=== PATIENT | male | born 1980 | race Caucasian/White ===

== ENCOUNTER 2019-10-10 15:49 | Emergency (ER) | payer OTHER, SELFPAY ==
--- NOTE | ~2019-10-10 | CT_ITS ---
EXAMINATION: CT soft tissue neck wo con EXAM DATE: 10/10/2019 16:45 INDICATION: Left-sided neck tenderness, anterior cervical adenopathy/mass. TECHNIQUE: Spiral CT of the neck was performed without contrast. Axial, coronal and sagittal images were reviewed. The dose-length product (DLP) for this examination was 623.90 mGy-cm. The exposure was tailored according to patient size (auto mA exposure control), and iterative reconstruction (ASIR ) was used as additional dose reduction technique. There is no prior study for comparison. FINDINGS: The thyroid gland is unremarkable. The submandibular and parotid glands are symmetric. There is no cervical lymphadenopathy. There are no masses identified. The superior mediastinum is unremarkable. The airway is unremarkable. Parapharyngeal and pre-glottic fat planes are preserve d. Limited evaluation of cervical vessels on this noncontrast study. The orbits are unremarkable. Mild to moderate right maxillary, mild left maxillary sinus mucoperiosteal thickening. Mastoid air cells are well aerated. Lung apices are clear. Cervical fusion C6-7. IMPRESSION: Unremarkable CT neck examination. Reviewed, dictated and finalized at location A. STRETCHER HAND
[2019-10-10 16:09] VITALS: BP 138/85; PULSE 84; RESP 19; TEMP 36.7; O2SAT 100
--- NOTE | 2019-10-10 16:30 | ED.GENADULT ---
HPI - General Adult General Chief complaint: Unspecified Stated complaint: THROAT PAIN Time Seen by Provider: 10/10/19 16:16 Source: patient Mode of arrival: ambulatory Limitations: no limitations History of Present Illness HPI narrative: This is a 39 year old male that presents to the ER for lump in his neck for 5 years. Reports a lump on the left side of his neck that has been present for a long time. Reports it is painful when he coughs. Reports he feels like it causes him to lose his airway when he coughs. Reports a hoarse voice and cough. He has not been seen for this yet. Denies fever, sore throat, rhinorrhea, or congestion, chest pain or current shortness of breath. Related Data Home Medications Medication Instructions Recorded Confirmed No Home Medications 10/10/19 10/10/19 Allergies Allergy/AdvReac Type Severity Reaction Status Date / Time clarithromycin Allergy Unknown Hives Verified 10/10/19 16:13 codeine Allergy Unknown Hives Verified 10/10/19 16:13 morphine Allergy Unknown Unknown Verified 10/10/19 16:13 propoxyphene Allergy Unknown Unknown Verified 10/10/19 16:13 SHELLFISH Allergy Unknown Anaphylaxis Uncoded 10/10/19 16:13 Review of Systems Review of Systems: Narrative: CONSTITUTIONAL: Denies fever ENT: Reports otalgia. Denies rhinorrhea, congestion, sore throat CARDIOVASCULAR: Denies chest pain RESPIRATORY: Reports cough. Denies dyspnea All systems reviewed & are unremarkable except as noted in HPI and below PMFSH Past Medical History Medical History (Updated 10/10/19 @ 17:57 by Abeba Freedman PA-C) History of hypertension Surgical History Surgical History (Updated 10/10/19 @ 16:42 by Abeba Freedman PA-C) History of appendectomy History of cholecystectomy Social History Social History (Updated 10/10/19 @ 16:42 by Abeba Freedman PA-C) Smoking status: Current every day smoker Gender identity (if verbalized by the patient): Male Exam Narrative: Exam Narrative: GENERAL: Well-appearing, well-nourished, and in no acute distress. HEAD: Normocephalic, atraumatic. EYES: EOMI. ENT: Nares clear, no rhinorrhea or epistaxis. Mucous membranes moist. Oropharynx without tonsillar hypertrophy exudate or other lesions. Bilateral TMs pearly grimes non-bulging NECK: Supple. Left sided tender anterior cervical adenopathy. No abnormal masses CHEST: Clear to auscultation. No respiratory distress. No wheezes rales or rhonchi HEART: Regular rate and rhythm. No murmur heard. Normal peripheral pulses. EXTREMITIES: Normal range of motion. No edema. SKIN: Warm, dry, no rash. NEURO: No focal deficits. Alert and oriented x3. PSYCH: Normal mood and affect Course Vital Signs Vital signs: Vital Signs Temperature 98.0 F 10/10/19 16:09 Pulse Rate 84 10/10/19 16:09 Respiratory Rate 10/10/19 16:09 Blood Pressure 138/85 10/10/19 16:09 Pulse Oximetry 100 10/10/19 16:09 Temperature 98.0 F 10/10/19 16:09 Pulse Rate 84 10/10/19 16:09 Respiratory Rate 10/10/19 16:09 Blood Pressure 138/85 10/10/19 16:09 Pulse Oximetry 100 10/10/19 16:09 Medical Decision Making [facility] Narrative Medical decision making narrative: Patient presents the emergency department for chronic hoarseness and feeling of mass in his neck for years. He is afebrile and nontoxic-appearing. Airway is patent on exam. CBC with mild normocytic anemia, otherwise no acute changes. Metabolic panel is without acute changes. Inflammatory markers are not elevated. CT soft tissue neck is unremarkable. Patient was updated on case findings. He is to follow-up with his primary care doctor. He was given warnings to return to the ER Vital Signs Vital Signs: Vital Signs Temperature 98.0 F 10/10/19 16:09 Pulse Rate 84 10/10/19 16:09 Respiratory Rate 19 10/10/19 16:09 Blood Pressure 138/85 10/10/19 16:09 Pulse Oximetry 100 10/10/19 16:09 Temperature 98.0 F 10/10/19 16:09 Pulse Rate 84
[2019-10-10 16:38] LABS: Basophils Percent Auto 0.1 % (0.2-1.2); Eosinophils Absolute Auto 0.4 K/mm3 (0-0.3); Eosinophils Percent Auto 4.2 % (0-4.4); Hematocrit 38.3 % (42.0-52.0); Hemoglobin 12.7 g/dL (14.0-18.0); Immature Granulocyte Absolute 0.04 K/mm3 (0.00-0.031); Immature Granulocyte Percent A 0.4 % (0-0.5); Lymphocytes Absolute Auto 2.23 K/mm3 (0.9-3.2); Lymphocytes Percent Auto 21.7 % (18.3-44.2); Mean Corpuscular HGB Conc 33.2 g/dl (32-36); Mean Corpuscular Hemoglobin 28.5 pg (26-34); Mean Corpuscular Volume 85.9 fl (80-100); Mean Platelet Volume 10.1 fl (7.4-10.4); Monocytes Absolute Auto 0.8 K/mm3 (0.1-0.6); Monocytes Percent Auto 7.6 % (2.6-8.5); Neutrophils Absolute Auto 6.8 K/mm3 (1.3-6.7); Platelet Count Result 299 k/mm3 (150-375); Red Blood Count 4.46 M/mm3 (4.6-6.20); Red Cell Distribution Width 14.4 % (11.5-14.5); White Blood Count 10.3 K/mm3 (4.5-10.0)
[2019-10-10 16:51] LABS: Blood Urea Nitrogen 11 mg/dL (9-20); CRP < 0.5 mg/dL (<1.0); Carbon Dioxide 21 mmol/L (22-30); Chloride 105 mmol/L (98-107); Estimated Glomerular Filt Rate > 60; Glucose 114 mg/dL (75-110); Potassium 3.9 mmol/L (3.4-5.0); Sodium 140 mmol/L (137-145)
[2019-10-10 17:07] LABS: Erythrocyte Sedimentation Rate 15 mm/hr (0-20)
== END 2019-10-10 18:09 | disposition home or self-care (01) ==
PROVIDERS: Physician Assistant; Emergency Provider Emergency Medicine; PCP Family Medicine Adolescent Medicine
DX: M54.2 Cervicalgia (principal); I10 Essential (primary) hypertension; F17.200 Nicotine dependence, unspecified, uncomplicated
CPT/HCPCS: 36415; 70490; 80048; 85025; 85652; 86140; 99284

== ENCOUNTER 2020-06-07 19:27 | Emergency (ER) | payer OTHER, SELFPAY ==
[2020-06-07 19:34] VITALS: BP 132/89; PULSE 89; RESP 16; TEMP 37; O2SAT 99
--- NOTE | 2020-06-07 19:40 | ED.GENADULT ---
HPI - General Adult General Chief complaint: Ear Stated complaint: Right Ear Pain Time Seen by Provider: 06/07/20 19:40 Source: patient Mode of arrival: ambulatory Limitations: no limitations History of Present Illness HPI narrative: 39-year-old male patient presents to the [facility] with complaints of right ear pain for the past 2 to 3 days. Patient states he has had some ringing to the right ear. Patient states he is also has some runny nose and stuffy nose and a slight cough that is nonproductive. Denies any fevers in the last 2 days but states he thinks he might have been running a fever about 3 days ago and states it was probably low-grade 99-100. Patient denies any chest pain or shortness of breath. Denies any abdominal pain, nausea, vomiting or diarrhea. Patient states he has been taking Benadryl and Tylenol for his symptoms. Patient states he was Covid tested last week it was negative. Related Data Allergies Allergy/AdvReac Type Severity Reaction Status Date / Time clarithromycin Allergy Unknown Hives Verified 10/10/19 16:13 codeine Allergy Unknown Hives Verified 10/10/19 16:13 morphine Allergy Unknown Unknown Verified 10/10/19 16:13 propoxyphene Allergy Unknown Unknown Verified 10/10/19 16:13 SHELLFISH Allergy Unknown Anaphylaxis Uncoded 10/10/19 16:13 Review of Systems Review of Systems: Narrative: CONSTITUTIONAL: Positive low-grade fever, denies chills, or sweats. EYES: Denies visual changes, redness, or discharge. ENT: Positive rhinorrhea, congestion, positive sore throat, positive right otalgia. CARDIOVASCULAR: Denies chest pain, palpitations, or edema. RESPIRATORY: Denies cough or dyspnea. GASTROINTESTINAL: Denies abdominal pain, nausea, vomiting, or diarrhea. GENITOURINARY: Denies dysuria or hematuria. SKIN: Denies rash or itching. MUSCULOSKELETAL: Denies back pain, joint pain, or myalgia. NEUROLOGIC: Denies headache, numbness, or weakness. PSYCHIATRIC: Denies anxiety or depression. [facility] Past Medical History Medical History (Updated 06/07/20 @ 19:46 by SHARI Cooper) Fractures Right patella History of hypertension Musculoskeletal disorder Right carpal tunnel release Surgical History Surgical History (Updated 06/07/20 @ 19:41 by SHARI Cooper) H/O Spinal surgery C6 and C7 fusion History of appendectomy History of cholecystectomy History of orthopedic surgery Left shoulder Social History Social History Smoking status: Current every day smoker Gender identity (if verbalized by the patient): Male Comments At the time of my signature I agree with nursing past medical history, surgical, social, and family history. There is no relevant family history pertinent to the presenting complaint. Exam Narrative: Exam Narrative: GENERAL: Well-appearing, well-nourished, and in no acute distress. HEAD: Normocephalic, atraumatic. EYES: PERRLA and EOMI. ENT: Nares clear, no rhinorrhea or epistaxis. Mucous membranes moist. Posterior pharynx no erythema, tonsil management, exudates or lesions present. Patient's right ear does have erythema and fluid behind the ear. It does appear to have some injection noted. Left ear is clear no erythema or foreign bodies to the canal. NECK: Supple. No lymphadenopathy CHEST: Clear to auscultation. No respiratory distress. HEART: Regular rate and rhythm. No murmur heard. Normal peripheral pulses. ABDOMEN: Soft, nontender, nondistended, normal active bowel sounds. EXTREMITIES: Normal range of motion. No edema. SKIN: Warm, dry, no rash. NEURO: No focal deficits. Alert and oriented x3. Course Vital Signs Vital signs: Vital Signs Temperature 37.0 C 06/07/20 19:34 Pulse Rate 89 06/07/20 19:34 Respiratory Rate 16 06/07/20 19:34 Blood Pressure 132/89 06/07/20 19:34 Pulse Oximetry 99 06/07/20 19:34 Temperature 37.0 C 06/07/20 19:34 Pulse Rate 89 06/07/20 19:34 Respiratory
== END 2020-06-07 19:52 | disposition home or self-care (01) ==
PROVIDERS: Emergency Provider Nurse Practitioner Family
DX: H66.91 Otitis media, unspecified, right ear (principal); I10 Essential (primary) hypertension
CPT/HCPCS: 99213; G0463

== ENCOUNTER 2022-10-21 14:22 | Outpatient (CLI) | payer OTHER, SELFPAY ==
--- NOTE | ~2022-10-21 | XR_ITS ---
EXAMINATION: XR chest 2V DATE: 10/21/2022 14:59 INDICATION: Cough and shortness of breath TECHNIQUE: PA and lateral views of the chest are obtained. COMPARISON: 03/05/2018 FINDINGS: The lungs are free of acute opacities. No pleural effusion or pneumothorax. The cardiomedia stinal silhouette is normal. Changes of anterior and posterior fusion are noted in the lower cervical spine. Surgical clips in the right upper quadrant are likely from prior cholecystectomy. IMPRESSION: 1. No acute cardiopulmonary abnormality. Reviewed, dictated and finalized at location F. R CONE GRADER
== END 2022-10-21 14:23 | disposition home or self-care (01) ==
PROVIDERS: PCP Internal Medicine; Visit Provider Internal Medicine
DX: R06.09 Other forms of dyspnea (principal); G47.30 Sleep apnea, unspecified
CPT/HCPCS: 71046

== ENCOUNTER 2022-10-23 18:06 | Emergency (ER) | payer OTHER, SELFPAY ==
--- NOTE | 2022-10-23 18:11 | ECG_ITS ---
Measurements Intervals [place] Rate: 80 P: 21 VA: 175 QRS: 5 QRSD: 109 T: 37 QT: 366 QTc: 423 Interpretive Statements SINUS RHYTHM MINIMAL Q WAVES- HIGH LATERAL LEADS BASELINE WANDER- V1-V4 BORDERLINE ECG NO PREVIOUS ECG AVAILABLE FOR COMPARISON Electronically Signed On 10-24-2022 6:45:27 [address] [employer] by David Ford D.O.
[2022-10-23 18:18] VITALS: BP 136/83; PULSE 85; RESP 17; TEMP 36.9; O2SAT 96
--- NOTE | 2022-10-23 18:25 | PC.NURSE ---
pt. states I feel fine and there are a lot of people here, we are going to follow up with my pcp. Pt. advised to seek medical tx. if ss worsen. pt. ambulated out of ed w/ steady gait.
== END 2022-10-23 19:04 | disposition left against medical advice (07) ==
PROVIDERS: Emergency Provider Emergency Medicine; PCP Internal Medicine
DX: Z53.21 Procedure and treatment not carried out due to patient leaving prior to being seen by health care provider (principal)
CPT/HCPCS: 93005; 99199

== ENCOUNTER 2022-12-03 08:55 | Emergency (ER) | payer OTHER, SELFPAY ==
--- NOTE | ~2022-12-03 | CT_ITS ---
EXAMINATION: CT abdomen pelvis wo con DATE: 12/03/2022 11:12 INDICATION: Chest pain. Back pain radiating to the ribs. TECHNIQUE: Computed tomography (CT) of the abdomen and pelvis was performed without intravenous contr ast. Automated exposure control and iterative reconstruction technique were employed. The dose-length product was 1394.99 mGy-cm. COMPARISON: None. FINDINGS: The visualized portions of the lung bases demonstrate mild atelectasis. No pleural effusion . The heart size is normal. No pericardial effusion. The liver and spleen are normal. There are goss es of cholecystectomy. The pancreas, adrenal glands, and kidneys are normal. There is no urolithiasis . There are bilateral inguinal hernias containing fat. The appendix is normal. There are no pathologi spencer enlarged lymph nodes. There is no free intraperitoneal fluid. There are subcutaneous injection sites in anterior abdominal wall. There is mild thoracic spondylosis. IMPRESSION: 1. No urolithiasis. Reviewed, dictated and finalized at location A. IMPRESSION: 1. No urolithiasis.
--- NOTE | ~2022-12-03 | XR_ITS ---
EXAMINATION: XR chest 2V DATE: 12/03/2022 11:15 INDICATION: Chest pain. Cough. TECHNIQUE: Frontal and lateral views of the chest were obtained. COMPARISON: Chest 2 views 10/21/2022 FINDINGS: The chest demonstrates clear lungs without pneumonia, pleural effusion, or pneumothorax. Th e heart size is normal. Surgical clips in the right upper quadrant are likely from cholecystectomy. T here are changes of anterior and posterior fusion procedures in cervical spine. IMPRESSION: 1. No acute cardiopulmonary disease. Reviewed, dictated and finalized at location A.
--- NOTE | ~2022-12-03 | NM_ITS ---
EXAMINATION: NM pulmonary perfusion DATE: 12/03/2022 12:48 INDICATION: Chest pain. Cough. TECHNIQUE: 5.5 mCi Tc-99m MAA was administered intravenously for perfusion images. Scintigraphic stacy ges of the chest were obtained. COMPARISON: Chest 2 views 12/03/2022 FINDINGS: Perfusion images show no defects. IMPRESSION: 1. Normal perfusion. Pulmonary embolism absent. Reviewed, dictated and finalized at location A.
[2022-12-03 09:00] VITALS: BP 140/98; PULSE 87; RESP 15; TEMP 36.7; O2SAT 95
[2022-12-03 09:06] VITALS: RESP 15
--- NOTE | 2022-12-03 09:53 | ED.GENADULT ---
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 Reports the pain is a constant dull ache with intermittent sharpness, more tender to palpation overlying the right flank and lower right posterior ribs that wraps around to his side. Pain worse with coughing, deep inhalation and movement. Patient reports he has had a constant cough since he had COVID back in June 2022, he is currently being evaluated by casework supervisor and was diagnosed with JUSTINE and is awaiting a pulmonary function test. He uses an albuterol inhaler regularly with improvement in his cough, but states it has become more productive the past couple of days. He does endorse shortness of breath but states this is not different from his baseline. He denies fevers, body aches or chills, chest pain, focal numbness or weakness, dysuria or hematuria, history of nephrolithiasis, hemoptysis, history of PE, abdominal pain, nausea, vomiting, diarrhea. <NANCY Lambert Last Filed: 12/03/22 19:11> Related Data Allergies/adverse reactions: Allergies Allergy/AdvReac Type Severity Reaction Status Date / Time shellfish derived Allergy Severe Anaphylaxis Verified 12/03/22 13:12 clarithromycin Allergy Unknown Hives Verified 12/03/22 09:10 codeine Allergy Unknown Hives Verified 12/03/22 09:10 morphine Allergy Unknown Unknown Verified 12/03/22 09:10 propoxyphene Allergy Unknown Unknown Verified 12/03/22 09:10 <NANCY Lambert Last Filed: 12/03/22 19:11> Review of Systems Review of Systems: CONSTITUTIONAL: Denies fever, chills EYES: Denies visual changes, redness, or discharge. ENT: Denies rhinorrhea, congestion, sore throat, or otalgia. CARDIOVASCULAR: Denies chest pain, palpitations, or edema. RESPIRATORY: See HPI GASTROINTESTINAL: Denies abdominal pain, nausea, vomiting, or diarrhea. GENITOURINARY: Denies dysuria or hematuria. SKIN: Denies rash or itching. MUSCULOSKELETAL: See HPI NEUROLOGIC: Denies headache, numbness, dizziness, or weakness. PSYCHIATRIC: Denies anxiety or depression. <Zara Plascencia PA-C - Last Filed: 12/03/22 19:11> [facility] Past Medical History Medical History: Medical History Fractures Right patella History of hypertension Musculoskeletal disorder Right carpal tunnel release <Zara Plascencia PA-C - Last Filed: 12/03/22 19:11> Surgical History Surgical History: Surgical History H/O Spinal surgery C6 and C7 fusion History of appendectomy History of cholecystectomy History of orthopedic surgery Left shoulder <Zara Plascencia PA-C - Last Filed: 12/03/22 19:11> Social History Social History: Social History Smoking status: Current every day smoker Gender identity (if verbalized by the patient): Male <Zara Plascencia PA-C - Last Filed: 12/03/22 19:11> Exam Narrative: GENERAL: Well-appearing, well-nourished, and in no acute distress. Patient resting comfortably in the exam bed. He is pleasant and conversational HEAD: Normocephalic, atraumatic. EYES: PERRLA and EOMI. ENT: Nares clear, no rhinorrhea or epistaxis. Mucous membranes moist. Oropharynx without tonsillar hypertrophy exudate or other lesions. NECK: Supple. No adenopathy or masses. CHEST: Diffuse wheezing throughout all lung arzola. No respiratory distress. HEART: Regular rate and rhythm. No murmur heard.
[2022-12-03] MEDS: CYCLOBENZAPRINE HCL 10 MG TABLET PO (10:06)
[2022-12-03] MEDS: KETOROLAC 30 MG/ML VIAL (*BKC) IV PUSH (10:06)
[2022-12-03] MEDS: SODIUM CHLORIDE 0.9% IV 1,000 ML 999 ML IV CONT (10:07)
[2022-12-03] MEDS: methylPREDNISolone SOD SUCC 125 MG VIAL IV PUSH (10:07)
[2022-12-03 10:15] LABS: Basophils Percent Auto 0.1 % (0.2-1.2); Eosinophils Absolute Auto 0.5 K/mm3 (0-0.3); Eosinophils Percent Auto 6.4 % (0-4.4); Hemoglobin 13.2 g/dL (14.0-18.0); Immature Granulocyte Absolute 0.05 K/mm3 (0.00-0.031); Immature Granulocyte Percent A 0.6 % (0-0.5); Lymphocytes Absolute Auto 1.96 K/mm3 (0.9-3.2); Lymphocytes Percent Auto 23.3 % (18.3-44.2); Mean Corpuscular HGB Conc 33.8 g/dl (32-36); Mean Corpuscular Hemoglobin 27.7 pg (26-34); Mean Corpuscular Volume 81.9 fl (80-100); Mean Platelet Volume 9.6 fl (7.4-10.4); Monocytes Absolute Auto 0.6 K/mm3 (0.1-0.6); Neutrophils Absolute Auto 5.3 K/mm3 (1.3-6.7); Neutrophils Percent Auto 62.6 % (45.5-73.1); Platelet Count Result 291 k/mm3 (150-375); Red Blood Count 4.76 M/mm3 (4.6-6.20); Red Cell Distribution Width 13.5 % (11.5-14.5); White Blood Count 8.4 K/mm3 (4.5-10.0)
[2022-12-03 10:26] VITALS: PULSE 68; RESP 16
[2022-12-03] MEDS: ALBUTEROL SULFATE NEB 2.5 MG/3 ML INH 5 MG INHALATION (10:26)
[2022-12-03] MEDS: IPRATROPIUM BR 0.02% INH SOLN 0.5 MG/2.5 ML VIAL INHALATION (10:26)
[2022-12-03 10:29] LABS: Alanine Aminotransferase 29 U/L (6-50); Alkaline Phosphatase 83 U/L (38-126); Anion Gap 5 mmol/L (8-16); Aspartate Amino Transferase 27 U/L (17-59); Bilirubin,Total 0.4 mg/dL (0.2-1.3); Blood Urea Nitrogen 10 mg/dL (9-20); Calcium 8.7 mg/dL (8.4-10.2); Carbon Dioxide 34 mmol/L (22-30); Chloride 98 mmol/L (98-107); Estimated CRCL calculation 185 ml/min; Estimated Glomerular Filt Rate > 60; Glucose 101 mg/dL (65-110); Potassium 3.1 mmol/L (3.4-5.0); Sodium 137 mmol/L (137-145)
--- NOTE | 2022-12-03 10:36 | PC.NURSE ---
Pt to provide urine sample when finished with breathing treatment.
[2022-12-03 10:37] LABS: NT Pro B Type Natriuretic Pept 24 pg/mL (19.9-100)
[2022-12-03 10:38] VITALS: PULSE 72; RESP 16
[2022-12-03 10:55] LABS: Influenza A QL RT-PCR Negative (Negative); Influenza B QL RT-PCR Negative (Negative); SARS-CoV-2 RNA PCR Negative
[2022-12-03 10:59] VITALS: BP 124/66; PULSE 78; RESP 16; O2SAT 100
[2022-12-03 11:05] LABS: Appearance Urine Clear (Clear); Bilirubin Urine Negative (Negative); Blood Urine Negative (Negative); Color Urine Yellow (Yellow); Glucose Urine UA Negative (Negative); Ketones Urine Negative (Negative); Leukocyte Esterase Ur Negative LEU/UL (Negative); Nitrate Urine Negative (Negative); Protein Urine Negative (Negative); Specific Grav Ur 1.008 (1.001-1.035)
[2022-12-03 11:19] LABS: Add Urine Microscopic? NO
== END 2022-12-03 13:57 | disposition home or self-care (01) ==
PROVIDERS: Emergency Provider Physician Assistant; PCP Internal Medicine
DX: J44.1 Chronic obstructive pulmonary disease with (acute) exacerbation (principal); S39.012A Strain of muscle, fascia and tendon of lower back, initial encounter; Z20.822 Contact with and (suspected) exposure to COVID-19; G47.33 Obstructive sleep apnea (adult) (pediatric); F17.200 Nicotine dependence, unspecified, uncomplicated; Z86.16 Personal history of COVID-19; Z98.1 Arthrodesis status; X50.9XXA Other and unspecified overexertion or strenuous movements or postures, initial encounter
CPT/HCPCS: 36415; 71046; 74176; 78580; 80053; 81003; 83735; 83880; 85025; 87636; 94640; 96361; 96374; 96375; 99284; A9270; A9540; J1885; J2930; J7030

== ENCOUNTER 2023-02-09 09:06 | Outpatient (CLI) | payer OTHER, SELFPAY ==
--- NOTE | ~2023-02-09 | CT_ITS ---
CT Scan of the Chest without Contrast: Clinical Indication: COPD, shortness of breath Technique: Contiguous sections were acquired throughout the chest without intravenous contrast. Dose reduction technique was used on this scan by utilizing automated exposure control and iterative recon struction technique. The dose-length product (DLP) was 502.71 mGy-cm. Findings: There is no evidence of any significant mediastinal, hilar or axillary lymphadenopathy. The mediastin al soft tissues appear normal. There is no evidence of pleural or pericardial effusion. The lungs are clear. No pulmonary nodules or infiltrates are noted. Images through the upper abdomen reveal cholecystectomy clips. Impression: No significant abnormalities seen. Reviewed, dictated and finalized at location . Impression: No significant abnormalities seen.
== END 2023-02-09 09:07 | disposition home or self-care (01) ==
LOC: ANHIMG 09:07
PROVIDERS: PCP Internal Medicine; Visit Provider Nurse Practitioner Family
DX: R06.09 Other forms of dyspnea (principal); R06.02 Shortness of breath; U09.9 Post COVID-19 condition, unspecified
CPT/HCPCS: 71250

== ENCOUNTER 2023-02-09 09:10 | Outpatient (CLI) | payer OTHER, SELFPAY ==
--- NOTE | 2023-02-13 19:39 | WPDSIXMINUTE ---
Six Minute Walk Procedure Procedure Performed Pulmonary Stress Test (6 min walk) Six Minute Walk Six Minute Walk: DATE OF SERVICE: 02/09/2023 REQUESTING: Preston Turner APRN REASON FOR TESTING: Shortness of breath SIX MINUTE WALK This test was conducted per ATS guidelines. The initial saturation was 93%, and initial heart rate was 91. The patient walked without stopping, completing 1000 feet, 304.8 m 94%. The saturation at the end of testing was 94%beats per minute, maximum heart rate was 117 which returned to normal after recovery. The patient did not stop to rest. He was breathing room air during testing. IMPRESSION: This is a normal study. The patient did not require supplemental oxygen with exertion. Samantha Michael MD
--- NOTE | 2023-02-13 19:51 | WPDPFTINT ---
PFT Procedure Performed PFT Procedure Performed Spirometry with Pre/Post Bronchodilator Plethysmography (Lung Vol) Diffusing Cap (DLCO) Flow Vol Loop PFT Interpretation DOS: 02/09/2023 REQUESTING: Preston Turner APRN REASON FOR TESTING: shortness of breath PULMONARY FUNCTION TESTS Results are reliable and reproducible. Spirometry: FEV1 is 3.78 L, 82% predicted, normal. FVC is 5.34 L, 93% predicted, normal. FEV1/FVC 71%, normal. After bronchodilator, there is a 22% decrease in the FEV1 and 12% decrease in the FVC. This is a nonspecific response. Lung volumes: Total lung capacity 7.02 L, 94% predicted, normal. Residual volume 1.69 L, 84%, normal. RV /TLC is 24%, normal. Diffusion: DLCO is 22.2, 65% predicted. DLCO /VA is 3.42, 73%, below normal. Flow volume loop: Truncation of the inspiratory limb which is nonspecific finding. IMPRESSION: Normal spirometry, normal lung volumes, normal diffusion. Lack of response to bronchodilator should not preclude use if clinically indicated. No prior studies for comparison. Samantha Michael MD
== END 2023-02-09 09:11 | disposition home or self-care (01) ==
LOC: ANHPFT 09:11
PROVIDERS: PCP Internal Medicine; Visit Provider Nurse Practitioner Family
DX: R06.09 Other forms of dyspnea (principal)
CPT/HCPCS: 71250; 94060; 94618; 94726; 94729

== ENCOUNTER 2023-03-18 09:11 | Outpatient (CLI) | payer OTHER, SELFPAY ==
--- NOTE | 2023-04-08 16:14 | WPDSLEEPSTUD ---
Sleep Study Date of Study: 03/18/23 Ordering Provider: Preston Turner APRN Interpreting Physician: Samantha Michael MD Sleep Study Type: CPAP Titration Height: 1.85 m Weight: 117.027 kg Body Mass Index: 34.0 Neck Circumference (inches): 15 [place]: 13 Reason for Sleep Study Hypersomnolence * 10/29/2022 Home Sleep Test Type III device through [facility], AHI 7 with greater tahtn half events scored as central apneas; central AHI 4.7, obstructive AHI 2.3. Paradoxical breathing 5% of the night. No Julian-Aden respirations. Sleep History Ray Mobley is a 42-year-old male with history of opioid use disorder (in recovery), hypertension, and shortness of breath following a COVID infection in June 2022. He presents to the sleep lab for a PAP titration after a home sleep test showed at least mild central sleep apnea. He constantly awakens from sleep feeling short of breath. He frequently awakens at night with heartburn, belching or coughing. He constantly snores and snores loudly enough for others to complain. He constantly has trouble sleeping when he has a cold. He frequently wakes up gasping for breath during the night. He constantly has breathing problems at night. He occasionally sweats excessively at night. He frequently falls asleep during the day. He frequently falls sleep involuntarily and never falls asleep while driving. He occasionally notices his heart pounding or beating irregularly during the night. He never experiences loss of muscle tone with strong emotion. He never feels paralyzed on waking or falling asleep. He occasionally experiences vivid dreams upon waking or falling asleep. He never feels afraid of going to sleep. He occasionally has nightmares. He frequently recalls his dreams. He occasionally has thoughts racing through his mind. He never feels sad or depressed. He rarely feels anxiety or worry about things. He constantly notices parts of his body jerk. He constantly kicks during the night. He constantly feels crawling or aching feelings in his legs. He constantly feels leg pain at night. He constantly grinds his teeth during sleep and rarely has morning jaw pain. He frequently feels bothered by pain during the day and is occasionally awakened by pain during the night. He frequently wakes up feeling stiff, sore and achy in the morning with pain in his neck, spine, or joints. Normal bedtime is between 9pm and 11pm on the weekdays and between 9pm and midnight on the weekends, usually falling asleep within 30 minutes. He typically gets about 5 to 6 hours of sleep per night. His wake-up time is around 5am on the weekdays and 5am to 5:30am on the weekends. He typically wakes up 5 or more times per night and can be awake for 20 minutes to an hour and he will get a drink of water, smoke, watch TV, and read. He watches reads or watches television before falling asleep. He takes naps in the afternoon or evening but does not feel refreshed after a 10-15 minute nap. Habits: He smokes tobacco and vapes. Drinks about two 32-ounce caffeinated beverages per day. No alcohol or recreational substances. [facility] Past Medical History Medical History Fractures Right patella History of hypertension Musculoskeletal disorder Right carpal tunnel release Surgical History Surgical History H/O Spinal surgery C6 and C7 fusion History of appendectomy History of cholecystectomy History of orthopedic surgery Left shoulder Family History Family History Son Asthma Social History Social History Smoking packs per day: 1 Smoking cigarettes per day: 20.0 Years smoked: 29 Smoking pack-years: 29.00 Smoking status: Current every day smoker Tobacco type: cigarettes and e-cigarettes/vaping [place]
[2023-04-11 11:55] VITALS: BMI 34.0
== END 2023-03-19 07:40 | disposition home or self-care (01) ==
LOC: ANHCSM 09:11
PROVIDERS: PCP Internal Medicine; Visit Provider Nurse Practitioner Family
DX: G47.30 Sleep apnea, unspecified (principal); G47.31 Primary central sleep apnea
CPT/HCPCS: 95811

== ENCOUNTER 2023-03-28 14:15 | Outpatient (RCR) | payer OTHER, SELFPAY ==
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
--- NOTE | 2023-03-03 07:58 | OPREHPOC ---
Outpatient Therapy Plan of Care This is a Multidisciplinary Plan of Care that may contain components documented by all disciplines (PT, OT, and ST.) PT Problem 1 PT Problem #1 Knowledge Deficit PT Goal 1 Goal Independent with HEP Target Visit 6 PT Problem 2 PT Problem #2 Pain PT Goal 1 Goal decrease pain to no more than 3/10 Target Visit 6 PT Problem 3 PT Problem #3 Impaired Range of Motion PT Goal 1 Goal increase lumbar rotation to 35 degrees Target Visit 6 PT Problem 4 PT Problem #4 Impaired Sensation PT Goal 1 Goal improved centralization of LLE up to the knees. Target Visit 6
--- NOTE | 2023-03-09 13:59 | PCPTNOTE ---
Addendum entered by Emre Coleman, PT 03/09/23 14:04: called patient and left a voicemail his next appointment is tuesday at 1230. Original Note: Patient did not show up for scheduled appointment this date.
--- NOTE | 2023-03-22 09:40 | PCPTNOTE ---
Patient called & cancelled scheduled appointment this date due to stating he cannot do Tuesdays and the help desk assistant put him down there for a replacement since Rogers was off yesterday. Patient is aware of his appointment PM 1445.
--- NOTE | 2023-03-24 15:18 | PCPTNOTE ---
Patient did not show up for scheduled appointment this date, left voicemail on patient's phone that he reassessment is Tuesday03/28/23 at 1418
--- NOTE | 2023-03-28 16:16 | PTOPDC ---
Assessment and note entered by Emre Coleman, PT Evaluation Information Assessment Status Discharge Diagnosis lumbago with sciatica Onset Chronic Subjective Information Patient reports that the pain is not getting any better. It is still going down the LLE and he is having popping in his back that feels weird. Patient reported biggest issue is slight flexion when washing dishes or shaving. Patient hopeful to be able to get an MRI. Reported Pain Level Pain Score 7: Self Report Assessment PT Clinical Summary Jens is a 42 year old male coming into the clinic with a diagnosis of Lumbago with sciatica. The patient has not met his goals for pain or range of motion. Recommend going back to the physician to talk about less conservative treatment options. Patient was evaluated on 02/28/23 and attended 5 visits with 2 no shows and 2 cancellations. Plan of Care PT Services Indicated No
== END 2023-03-29 11:33 | disposition home or self-care (01) ==
LOC: ANHPT 14:15
PROVIDERS: PCP Internal Medicine; Visit Provider Internal Medicine
DX: M54.42 Lumbago with sciatica, left side (principal)
CPT/HCPCS: 97014; 97110; 97140; 97161; 99199; G0283

== ENCOUNTER 2023-06-11 09:39 | Outpatient (CLI) | payer OTHER, SELFPAY ==
--- NOTE | 2023-06-11 09:50 | ECHO_ITS ---
Patient Info Name: Jens Mobley Age: 42 years : 1980 Gender: Male Ht: 72 in Wt: 249 lbs BSA: 2.43 m2 HR: 68 bpm BP: 129 / 96 mmHg Heart Rhythm: Sinus Rhythm Technical Quality: Good Exam Date: 06/11/2023 10:05 AM Exam Location: [facility]monary Patient Status: Outpatient Admit Date: 06/11/2023 Staff Ordering Physician: Preston Turner APRN Waste Elimination: Elvis Pereira RDCS Attending Provider: Preston Turner APRN Referring Physician: Johnny RICKS; Exam Type: CA echo doppler color flow Study Info Indications - sob, sleep apnea Complete two-dimensional, color flow and Doppler transthoracic echocardiogram is performed. Summary 1. Complete two-dimensional, color flow and Doppler transthoracic echocardiogram is performed. 2. Left ventricular chamber dimension is mildly enlarged. 3. Left ventricular systolic function is normal, estimated at 60-65%. 4. The left ventricular diastolic function is normal. 5. Left atrial chamber dimension is moderately enlarged. 6. There is trace tricuspid valve regurgitation. 7. No pulmonary hypertension, estimated pulmonary arterial systolic pressure is 27 mmHg. Left Ventricle Tissue doppler E/e' is not performed. Left ventricular chamber dimension is mildly enlarged. Left ventricular systolic function is normal, estimated at 60-65%. The left ventricular diastolic function is normal. Right Ventricle Right ventricular chamber dimension is normal. Right ventricular systolic function is normal. Left Atria Left atrial chamber dimension is moderately enlarged. Right Atria Right atrial chamber dimension is normal. Aortic Valve The aortic valve is trileaflet. There is no aortic valve stenosis. There is no aortic valve regurgitation. Pulmonic Valve There is no pulmonic regurgitation. Mitral Valve There is no mitral valve stenosis. There is no mitral valve regurgitation. Tricuspid Valve There is trace tricuspid valve regurgitation. No pulmonary hypertension, estimated pulmonary arterial systolic pressure is 27 mmHg. Pericardium/Pleural There is no pericardial effusion. Inferior Vena Cava Normal inferior vena cava with >50% collapse upon inspiration consistent with normal right atrial pressure, 5 mmHg. Aorta The aortic root size at the sinus of Valsalva is normal. Left Ventricular Outflow Tract Name Value Normal LVOT 2D LVOT Diameter 1.9 cm LVOT Doppler LVOT Peak Gradient 6 mmHg LVOT Mean Gradient 3 mmHg LVOT VTI 31 cm LVOT VTI/AV VTI Ratio 0.8 LVOT Stroke Volume 87 ml LVOT CO 5.8 l/min LVOT CI 2.4 l/min/m2 Pulmonic Valve Name Value Normal RVOT Doppler RVOT Peak Gradient 2 mmHg PV Doppler
== END 2023-06-11 09:40 | disposition home or self-care (01) ==
LOC: ANHCARD 09:43
PROVIDERS: PCP Internal Medicine; Visit Provider Nurse Practitioner Family
DX: G47.31 Primary central sleep apnea (principal); I07.1 Rheumatic tricuspid insufficiency; R06.02 Shortness of breath; R93.1 Abnormal findings on diagnostic imaging of heart and coronary circulation
CPT/HCPCS: 93306

== ENCOUNTER 2023-06-24 08:20 | Outpatient (CLI) | payer OTHER, SELFPAY ==
[2023-07-18 11:07] VITALS: BMI 32.3
--- NOTE | 2023-07-18 11:07 | WPDSLEEPSTUD ---
Sleep Study Date of Study: 06/24/23 Ordering Provider: Preston Turner APRN Interpreting Physician: Keara Lopez DO Sleep Study Type: CPAP Titration Height: 1.85 m Weight: 111.13 kg Body Mass Index: 32.3 Neck Circumference (inches): 15 [place]: 13 Reason for Sleep Study * 10/29/2022 Home Sleep Test Type III device through [facility], AHI 7 with greater than half events scored as central apneas; central AHI 4.7, obstructive AHI 2.3. Paradoxical breathing 5% of the night.? No Julian-Aden respirations. *03/18/2023 PAP Titration study [facility]. AHI of 33, [place] of 18. Titrated from CPAP 5 cm H2O to 14 cm H2O, BPAP 13/9 cm H2O and BPAP 15/11 cm H2O with back-up rate of 6 breaths/min. No optimal pressure found. Recommended to have BPAP/ASV Titration starting at BPAP 13/9 cm H2O with back up rate of 10 breaths/min. Sleep History Jens Mobley is a 42-year-old male with history of opioid use disorder (in recovery), hypertension, and shortness of breath following a COVID infection in June 2022. He presents to the sleep lab for a PAP titration after a home sleep test showed at least mild central sleep apnea. ? He constantly awakens from sleep feeling short of breath.? He frequently awakens at night with heartburn, belching or coughing.? He constantly snores and snores loudly enough for others to complain. He constantly has trouble sleeping when he has a cold. He frequently wakes up gasping for breath during the night. He constantly has breathing problems at night. He occasionally sweats excessively at night. He frequently falls asleep during the day. He frequently falls sleep involuntarily and never falls asleep while driving.? He occasionally notices his heart pounding or beating irregularly during the night.? He never experiences loss of muscle tone with strong emotion. He never feels paralyzed on waking or falling asleep. He occasionally experiences vivid dreams upon waking or falling asleep. He never feels afraid of going to sleep. He occasionally has nightmares. He frequently recalls his dreams. He occasionally has thoughts racing through his mind. He never feels sad or depressed. He rarely feels anxiety or worry about things. He constantly notices parts of his body jerk. He constantly kicks during the night. He constantly feels crawling or aching feelings in his legs. He constantly feels leg pain at night. He constantly grinds his teeth during sleep and rarely has morning jaw pain. He frequently feels bothered by pain during the day and is occasionally awakened by pain during the night. He frequently wakes up feeling stiff, sore and achy in the morning with pain in his neck, spine, or joints.? Normal bedtime is between 9pm and 11pm on the weekdays and between 9pm and midnight on the weekends, usually falling asleep within 30 minutes. He typically gets about 5 to 6 hours of sleep per night. His wake-up time is around 5am on the weekdays and 5am to 5:30am on the weekends. He typically wakes up 5 or more times per night and can be awake for 20 minutes to an hour and he will get a drink of water, smoke, watch TV, and read. He watches reads or watches television before falling asleep. He takes naps in the afternoon or evening but does not feel refreshed after a 10-15 minute nap. Habits:? He smokes tobacco and vapes. Drinks about two 32-ounce caffeinated beverages per day. No alcohol or recreational substances. [facility] Past Medical History Medical History Fractures Right patella History of hypertension Musculoskeletal disorder Right carpal tunnel release Surgical History Surgical History H/O Spinal surgery C6 and C7 fusion History of appendectomy History of cholecystectomy History of orthopedic surgery Left shoulder Family History Family History S
== END 2023-06-25 06:58 | disposition home or self-care (01) ==
LOC: ANHCSM 08:21
PROVIDERS: PCP Internal Medicine; Visit Provider Nurse Practitioner Family
DX: G47.31 Primary central sleep apnea (principal)
CPT/HCPCS: 95811

== ENCOUNTER 2024-12-14 21:41 | Emergency (ER) | payer MEDICAID, SELFPAY ==
--- NOTE | ~2024-12-14 | XR_ITS ---
XR shoulder RT min 2V Ordering provider: Juan Bai MD History: . ANTERIOR RIGHT SHOULDER PAIN X 3 WEEKS. NKI. . Comparison: None. FINDINGS: BONES: No acute fracture or dislocation. JOINT SPACES: The acromioclavicular joint is normal. The glenohumeral joint is normal. SOFT TISSUES: Normal. IMPRESSION: No acute osseous abnormality right shoulder. Reviewed, dictated and finalized at location A.
[2024-12-14 21:44] VITALS: BP 112/85; PULSE 73; RESP 18; TEMP 36; O2SAT 97
--- OUTSIDE RECORDS SUMMARY | 2024-12-14 21:44 | XMS_ITS | Patient Health Record ---
Author Organization [facility] Address [address] [place] [address] Care Team Providers Care Window Decorator Name Role Phone Aldo Trevor Primary Care Provider [phone] Magdi Milian Unavailable [phone] Dee Conner Unavailable [phone] Breanna Helm Unavailable [phone] Anahy Mays Unavailable [phone] Allergies Allergen (clinical drug ingredient) Drug/Non Drug Allergy documented on EMR Reaction Allergy Type Onset Date Status codeine Codeine Unknown Drug Allergy Active Shellfish (FN) Shellfish-derived Products Unknown Drug Allergy Active Results Component Value Reference Range Notes 12 Panel Urine Drug Screen Reviewed date:05/18/2024 11:33:50 AM Interpretation: Performing Lab: Notes/Report: THC neg KELVIN neg MOP (OPI) neg AMP neg MET neg BAR neg BZO neg MDMA neg MTD neg OXY neg PCP neg BUP NEG Buprenorphine and Metabolite (Urine test) Reviewed date:01/09/2024 09:53:02 AM Interpretation: Performing Lab:[facility], [address], [place], Phone - [phone], Director - PhDAbudu Notes/Report: Clinical Information:[id number] Buprenorphine Positive Confirmation p erformed by Mass Spectrometry Buprenorphine Positive Buprenorphine Conf, MS, UR 715 Cutoff=10 ng/m L Norbuprenorphine Positive Norbuprenorphine Conf, MS, UR 782 Cutoff=10 n g/mL 12 Panel Urine Drug Screen Reviewed date:01/02/2024 08:27:18 AM Interpretation: Performing Lab: Notes/Report: THC neg KELVIN neg MOP (OPI) neg AMP neg MET neg BAR neg BZO neg MDMA neg MTD neg OXY neg PCP neg BUP POS 12 Panel Urine Drug Screen Reviewed date:03/13/2024 02:35:42 PM Interpretation: Performing Lab: Notes/Report: THC neg KELVIN neg MOP (OPI) neg AMP POS MET POS BAR neg BZO neg MDMA POS MTD neg OXY neg PCP neg BUP POS 12 Panel Urine Drug Screen Reviewed date:10/23/2024 02:30:59 PM Interpretation: Performing Lab: Notes/Report: THC neg KELVIN neg MOP (OPI) neg AMP POS MET POS BAR neg BZO neg MDMA neg MTD neg OXY neg PCP neg BUP POS 12 Panel Urine Drug Screen Reviewed date:09/24/2024 04:13:43 PM Interpretation: Performing Lab: Notes/Report: THC neg KELVIN neg MOP (OPI) neg AMP POS MET POS BAR neg BZO neg MDMA neg MTD neg OXY neg PCP neg BUP POS 12 Panel Urine Drug Screen Reviewed date:02/15/2024 08:29:42 AM Interpretation: Performing Lab: Notes/Report: THC neg KELVIN neg MOP (OPI) neg AMP POS MET POS BAR neg BZO neg MDMA POS MTD neg OXY neg PCP neg BUP POS 12 Panel Urine Drug Screen Reviewed date:08/23/2024 11:22:28 AM Interpretation: Performing Lab: Notes/Report: THC neg KELVIN neg MOP (OPI) neg AMP POS MET POS BAR neg BZO neg MDMA neg MTD neg OXY neg PCP neg BUP POS Buprenorphine and Metabolite (Urine test) Reviewed date:08/01/2024 11:34:32 AM Interpretation: Performing Lab:[facility], [address] [facility], [facility], Phone - [phone], Director - PhDAbudu Notes/Report: Clinical Information:[id number] -Techinical component - Data analysis performed at [address] [address]. [phone] Fresh Food Manager Dhiraj Prieto MD. Buprenorphine Positive Confirmation p erformed by Mass Spectrometry Buprenorphine Positive Buprenorphine Conf, MS, UR 97 Cutoff=10 ng/m L Norbuprenorphine Positive Norbuprenorphine Conf, MS, UR 246 Cutoff=10 n g/mL 12 Panel Urine Drug Screen Reviewed date:07/26/2024 02:11:04 PM Interpretation: Performing Lab: Notes/Report: THC neg KELVIN neg MOP (OPI) neg AMP POS MET POS BAR neg BZO neg MDMA neg MTD neg OXY neg PCP neg BUP POS Fentanyl Confirmation, Ur Reviewed date:08/10/2024 03:33:57 PM Interpretation: Performing Lab:[facility], [address], [place], Phone - [phone], Director - PhDAbudu Notes/Report: Clinical Information:[id number] -Techinical component - Data analysis performed at [facility], [address] [place] [address]. [phone] Fresh Food Manager Dhiraj Prieto MD. FENTANYL / ANALOGUES +POSITIVE+ Fentanyl 13 Norfentanyl 31 Testing Threshold: fentanyl, 1.0 ng/mL; others, 5 ng/mL This test was developed and its performance characteristics determined by [facility]. It has not been cleared or approved by the Food and Drug Administration. Reason For Referral No Information Medications Medication SIG (Take, Route, Frequency, Duration) Notes Start Date End Date Status Narcan 4 MG/0.1ML as directed Nasally Active Gabapentin 300 mg TAKE 1 CAPSULE BY MOUTH DAILY for 30 Not-Taking Ventolin HFA 108 (90 Base) MCG/ACT INHALE 2 PUFFS EVERY FOUR HOURS NEEDED FOR SHORTNESS OF BREATH for 16 Active OXcarbazepine 150 mg TAKE 1 TABLET BY MOUTH TWICE A DAY for 30 Not-Taking Daily-Vasile - TAKE 1 TABLET BY MOUTH DAILY for 30 Active Naproxen 500 MG 1 tablet with food o r milk as needed Orally every 12 hrs for 30 days Active Acetaminophen Extra Strength 500 mg TAKE 2 TABLETS BY MOUTH EVERY SIX HOURS NEEDED FOR PAIN (MAX OF 6/DAY) for 15 Active Omeprazole 20 mg TAKE 1 CAPSULE BY MOUTH 30 MINUTES BEFORE MORNING MEAL for 30 Active hydrOXYzine Pamoate 50 MG 1 capsule Orally Once a day for 30 days As needed anxiety Active Ipratropium [place] 0.03 % 2 sprays in e ach nostril Nasally Twice a day 01/05/2023 Active rOPINIRole HCl 1 mg TAKE 1 TO 2 TABLETS BY MOUTH 1-3 HOURS BEFORE BEDTIME for 30 Active Loratadine 10 MG 1 tablet Orally Once a day for 30 day(s) Active tiZANidine HCl 4 MG 1 tablet Orally three times a day for 15 days As needed Active Buprenorphine HCl-Naloxone HCl 8-2 MG 1 film under the tongue and allow to dissolve Sublingual four times a day for 7 days 11/21/2024 Active Vitamin D (Ergocalciferol) 1.25 MG (99199 UT) TAKE 1 CAPSULE BY MOUTH EVERY MONTH for 30 Active Fluticasone Propionate 50 MCG/ACT 2 SPRAYS Nasally at night EACH NOSTRIL 12/14/2023 Active hydroCHLOROthiazide 25 mg TAKE 1 TABLET BY MOUTH EVERY MORNING for 30 Active Losartan Potassium 25 mg TAKE 1 TABLET B Y MOUTH DAILY for 30 Active Trulicity 4.5 MG/0.5ML INJECT 4.5MG SUBCUTANEOUSLY EVERY WEEK for 28 Active Social History Tobacco Use: Social History Observation Description Date Details (start date - stop date) Current Smoker NA - NA Sex Assigned At : Social History Observation Description Sex Assigned At Male PRAPARE Question Answer Notes Date Completed/Updated: 03/13/2024 What is your current housing situation? I have h ousing Are you worried about losing your housing? No What is the highest level of school that you have finished? High school diploma or GED What is your current work situation? [employer] In the past year, have you o r any family members you live with been unable to get any of the following when it was really needed? Check all that apply I do not have problems meeting my needs Has lack of transportation k ept you from medical appointments, meetings, work or from getting things needed for daily living? No How often do you see or talk to people that you care about and feel close to? (For example: talking to friends on the phone, visiting friends or family, going to yarsani or club meetings) More than 5 times a week How stressed are you? Stress is when someone feels tense, nervous, anxious, or can\t sleep at night because their mind is troubled A little bit In the past year have you sp ent more than 2 nights in a row in a halfway, fdc, penitentiary center, or juvenile correctional facility? No Are you a refugee? No What country are you from? [place] Do you feel physically and e motionally safe where you currently live? Yes In the past year, have you b een afraid of your partner or ex-partner? No PRAPARE Score: 4 Tobacco Control (Standard) Question Answer Notes Tobacco use: Current every day smoker Additional Findings: Tobacco user Light cigarett e smoker (1-9 cigs/day) Section Notes: Patient reports that he smok es 1 pack of cigarettes per day Patient reports that he has decreased smoking to 1/2 pack of cigarettes. Patient reports that he has decreased smoking to 1/2 pack of cigarettes. Patient reports that he has decreased smoking to 1/2 pack of cigarettes. Patient reports that he has decreased smoking to 1/2 pack of cigarettes. Patient reports that he has decreased smoking to 1/2 pack of cigarettes. Patient reports that he has decreased smoking to 1/2 pack of cigarettes. Patient reports that he has decreased smoking to 1/2 pack of cigarettes. Patient reports that he has decreased smoking to 1/2 pack of cigarettes. Patient reports that he has decreased smoking to 1/2 pack of cigarettes. Patient reports that he has decreased smoking to 1/2 pack of cigarettes. Patient reports that he has decreased smoking to 1/2 pack of cigarettes. Patient reports that he has decreased smoking to 1/2 pack of cigarettes. Patient reports that he has decreased smoking to 1/2 pack of cigarettes. Patient reports that he has decreased smoking to 1/2 pack of cigarettes. Patient reports that he has decreased smoking to 1/2 pack of cigarettes. Patient reports that he has decreased smoking to 1/2 pack of cigarettes. Patient reports that he has decreased smoking to 1/2 pack of cigarettes. Patient reports that he has decreased smoking to 1/2 pack of cigarettes. Patient reports that he has decreased smoking to 1/2 pack of cigarettes. Patient reports that he has decreased smoking to 1/2 pack of cigarettes. Patient reports that he has decreased smoking to 1/2 pack of cigarettes. Patient reports that he has decreased smoking to 1/2 pack of cigarettes. Patient reports that he has decreased smoking to 1/2 pack of cigarettes. Patient reports that he has decreased smoking to 1/2 pack of cigarettes. Patient reports that he has decreased smoking to 1/2 pack of cigarettes. Patient reports that he has decreased smoking to 1/2 pack of cigarettes. Patient reports that he has decreased smoking to 1/2 pack of cigarettes. Patient reports that he has decreased smoking to 1/2 pack of cigarettes. Patient reports that he has decreased smoking to 1/2 pack of cigarettes. Patient reports that he has decreased smoking to 1/2 pack of cigarettes. Patient reports that he has decreased smoking to 1/2 pack of cigarettes. Patient reports that he has decreased smoking to 1/2 pack of cigarettes. Patient reports that he has decreased smoking to 1/2 pack of cigarettes. Patient reports that he has decreased smoking to 1/2 pack of cigarettes. Patient reports that he has decreased smoking to 1/2 pack of cigarettes. Patient reports that he has decreased smoking to 1/2 pack of cigarettes. Patient reports that he has decreased smoking to 1/2 pack of cigarettes. Patient reports that he has decreased smoking to 1/2 pack of cigarettes. Patient reports that he has decreased smoking to 1/2 pack of cigarettes. Patient reports that he has decreased smoking to 1/2 pack of cigarettes. Patient reports that he has decreased smoking to 1/2 pack of cigarettes. Patient reports that he has decreased smoking to 1/2 pack of cigarettes. Patient reports that he has decreased smoking to 1/2 pack of cigarettes. Patient reports that he has decreased smoking to 1/2 pack of cigarettes. Patient reports that he has decreased smoking to 1/2 pack of cigarettes. Patient reports that he has decreased smoking to 1/2 pack of cigarettes. Patient reports that he has decreased smoking to 1/2 pack of cigarettes. Patient reports that he has decreased smoking to 1/2 pack of cigarettes. Patient reports that he has decreased smoking to 1/2 pack of cigarettes. Patient reports that he has decreased smoking to 1/2 pack of cigarettes. Patient reports that he has decreased smoking to 1/2 pack of cigarettes. Problems Problem Type SNOMED Code ICD Code Onset Dates Problem Status W/U Status Risk Notes Problem 0646424 Opioid use, unspecified with unspecified opioid-induced disorder (F11.99) Active confirmed Problem Bipolar disorder (03358995) Bipolar disorder, unspecified (F31.9) 05/25/20 22 Active confirmed Problem 86589151 Other chronic pa in (G89.29) Active confirmed Problem 6211360026 Pain in right kn ee (M25.561) Active confirmed Problem 549643004 Lumbago with sciatica, right side (M54.41) Active confirmed Problem 643643540 Lumbago with sciatica, left side (M54.42) Active confirmed Problem Hypertension (40566547) Hypertension (I10) 05/25/20 22 Active confirmed Problem Vitamin D deficiency (29841000) Vitamin D deficiency (E55.9) Active confirmed Problem Generalized anxiety disorder (96159053) SHANE (generalized anxiety disorder) (F41.1) Active confirmed Problem 11163338 Restless leg syndrome (G25.81) Active confirmed Problem Chronic fatigue syndrome (83557289) Chronic fatigue (R53.82) Active confirmed Problem Obesity (948664074) Obesity (BMI 30-39.9) (E66.9) Active confirmed Problem 037012256 Gastroesophageal reflux disease without esophagitis (K21.9) Active confirmed Problem Tobacco use (018834161) Tobacco use disorder (F17.200) Active confirmed Problem 9582369 Impaired glucose tolerance (R73.02) 02/29/20 23 Active confirmed Problem 600544175 Obesity due to excess calories without serious comorbidity, unspecified classification (E66.09) Active confirmed Problem Obesity (559379641) Obesity, unspecified classification, unspecified obesity type, unspecified whether serious comorbidity present (E66.9) Active confirmed Problem 66407619 Allergic rhiniti s, unspecified seasonality, unspecified trigger (J30.9) Active confirmed Problem BMI 30+ - obesity (774903718) BMI 32.0-32.9,adult (Z68.32) Active confirmed Problem Opioid use disorder (9506223384) Opioid use disorder (F11.99) Active confirmed Problem Body mass index 30+ - obesity (886665851) Body mass index (BMI) of 31.0-31.9 in adult (Z68.31) Active confirmed Problem Lesion of ulnar nerve (346501358) 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) Active confirmed Problem Body mass index 30.00 to 34.99 (33007447261180 7) Body mass index [BMI] 31.0-31.9, adult (Z68.31) Active confirmed Problem Body mass index 30+ - obesity (187322485) Body mass index [BMI] 30.0-30.9, adult (Z68.30) Active confirmed Vital Signs Heart Rate 88 /min 10/23/2024 Temperature 97.4 degrees Fahrenheit 08/23/2024 Respiratory Rate 18 /min 10/23/2024 Oximetry 98 % 10/23/2024 Blood pressure diastolic 80 mm Hg 10/23/2024 Height 73 in 10/23/2024 Blood pressure systolic 144 mm Hg 10/23/2024 Weight 219 lb 8 oz lbs 10/23/2024 BMI 28.96 kg/m2 10/23/2024 Encounters Encounter Location Date Provider Diagnosis [address] [place] [address] 01/19/2024 Anahy Mays [address] [place] [address] 02/15/2024 Anahy Muñozthomas [address] [place] [address] 04/11/2024 Anahy Mays [address] [place] [address] 04/18/2024 [facility] [address] [place] [address] 07/26/2024 Breanna Helm Opioid use disorder F11.[address] [place] [address] 04/11/2024 Anahy Mays [address] [place] [address] 04/16/2024 Trevor Carlson [address] [place] [address] 11/21/2024 Anahy Mays Opioid use disorder F11.[address] [place] [address] 12/21/2023 Dee Conner [address] [place] [address] 01/02/2024 Dee Conner [address] [place] [address] 02/15/2024 [facility] [address] [address] 03/13/2024 Dee Conner [facility] [address] [place] [address] 06/19/2024 Magdi Milian Opioid use disorder F11.[address] [address] 12/21/2023 Anahy Szlufithomas Opioid use disorder F11.90 ; Nicotine dependence, unspecified, uncomplicated F17.200 ; Obesity (BMI 30-39.9) E66.9 and Nutritional counseling Z71.[address] [address] 07/26/2024 Breanna Helm Opioid use disorder F11.99 and Tobacco use disorder F17.[address] [address] 08/23/2024 Trevor Carlson Opioid use disorder F11.99 ; Allergic rhinitis, unspecified seasonality, unspecified trigger J30.9 ; Overweight (BMI 25.0-29.9) E66.3 ; Nutritional counseling Z71.3 and Nicotine dependence, unspecified, uncomplicated F17.[address] [address] 09/24/2024 Anahy Hardylufithomas Opioid use disorder F11.[address] [address] 10/23/2024 Anahy Szlufik Opioid use disorder F11.[address] [address] 05/18/2024 Magdi Milian Opioid use disorder F11.99 ; Overweight (BMI 25.0-29.9) E66.3 and Tobacco use disorder F17.[address] [address] 03/13/2024 Anahycaitlin Muñozfithomas Nicotine dependence, unspecified, uncomplicated F17.200 ; Opioid use disorder F11.99 ; Overweight (BMI 25.0-29.9) E66.3 and Nutritional counseling Z71.[address] [address] 02/15/2024 Anahy Hayleymaximino Opioid use disorder F11.90 ; Obesity (BMI 30-39.9) E66.9 ; Nicotine dependence, unspecified, uncomplicated F17.200 and Nutritional counseling Z71.[address] [address] 01/02/2024 Anahy Liathomas Opioid use disorder F11.90 ; Nicotine dependence, unspecified, uncomplicated F17.200 ; Obesity (BMI 30-39.9) E66.9 and Nutritional counseling Z71.3 Assessments Encounter Date Diagnosis (ICD Code) Assessment Notes Treatment Notes Treatment Clinical Notes Section Notes 01/02/2024 Opioid use disorder (ICD-10 - F11.90) 11/21/2024 Opioid use disorder (ICD-10 - F11.99) 08/23/2024 Allergic rhinitis, unspecified seasonality, unspecified trigger (ICD-10 - J30.9) 08/23/2024 Opioid use disorder (ICD-10 - F11.99) Zubsolv not covered, changed to suboxone. 03/13/2024 Nicotine dependence, unspecified, uncomplicated (ICD-10 - F17.200) 03/13/2024 Opioid use disorder (ICD-10 - F11.99) 12/21/2023 Nicotine dependence, unspecified, uncomplicated (ICD-10 - F17.200) 12/21/2023 Opioid use disorder (ICD-10 - F11.90) 07/26/2024 Opioid use disorder (ICD-10 - F11.99) 07/26/2024 Tobacco use disorder (ICD-10 - F17.200) 07/26/2024 Opioid use disorder (ICD-10 - F11.99) 06/19/2024 Opioid use disorder (ICD-10 - F11.99) 05/18/2024 Overweight (BMI 25.0-29.9) (ICD-10 - E66.3) 05/18/2024 Opioid use disorder (ICD-10 - F11.99) 09/24/2024 Opioid use disorder (ICD-10 - F11.99) 02/15/2024 Obesity (BMI 30-39.9) (ICD-10 - E66.9) 02/15/2024 Opioid use disorder (ICD-10 - F11.90) 01/02/2024 Nicotine dependence, unspecified, uncomplicated (ICD-10 - F17.200) 10/23/2024 Opioid use disorder (ICD-10 - F11.99) 01/02/2024 Obesity (BMI 30-39.9) (ICD-10 - E66.9) 02/15/2024 Nicotine dependence, unspecified, uncomplicated (ICD-10 - F17.200) 08/23/2024 Overweight (BMI 25.0-29.9) (ICD-10 - E66.3) 05/18/2024 Tobacco use disorder (ICD-10 - F17.200) 12/21/2023 Obesity (BMI 30-39.9) (ICD-10 - E66.9) 03/13/2024 Overweight (BMI 25.0-29.9) (ICD-10 - E66.3) 03/13/2024 Nutritional counseling (ICD-10 - Z71.3) 08/23/2024 Nutritional counseling (ICD-10 - Z71.3) 12/21/2023 Nutritional counseling (ICD-10 - Z71.3) 02/15/2024 Nutritional counseling (ICD-10 - Z71.3) 01/02/2024 Nutritional counseling (ICD-10 - Z71.3) 08/23/2024 Nicotine dependence, unspecified, uncomplicated (ICD-10 - F17.200) 12/21/2023 Other Will need UDS at next visit Client agrees to take medication as prescribed. Discussed medication side effects, adverse effects, risks, benefits, as well as interactions. Encouraged non-use of opioids and other illicit substances. Has naloxone. Understand that discontinuing buprenorphine increases the risk of overdose upon return to illicit opioid use. Know that that use of alcohol or benzodiazepines with buprenorphine increases the risk of overdose and . Education provided about safe storage of medications. Encourage participation in recovery groups/counseling services. Agrees to contact office with questions or concerns. 12/21/2023 Other Provided case management services to address social determinants of health needs and reduce barriers to health care services. 01/02/2024 Other Client agrees to take medication as prescribed. Discussed medication side effects, adverse effects, risks, benefits, as well as interactions. Encouraged non-use of opioids and other illicit substances. Has naloxone. Understand that discontinuing buprenorphine increases the risk of overdose upon return to illicit opioid use. Know that that use of alcohol or benzodiazepines with buprenorphine increases the risk of overdose and . Education provided about safe storage of medications. Encourage participation in recovery groups/counseling services. Contact office with questions or concerns. 01/02/2024 Other Provided case management services to address social determinants of health needs and reduce barriers to health care services. 02/15/2024 Other Client agrees to take medication as prescribed. Discussed medication side effects, adverse effects, risks, benefits, as well as interactions. Encouraged non-use of opioids and other illicit substances. Has naloxone. Understand that discontinuing buprenorphine increases the risk of overdose upon return to illicit opioid use. Know that that use of alcohol or benzodiazepines with buprenorphine increases the risk of overdose and . Education provided about safe storage of medications. Encourage participation in recovery groups/counseling services. Contact office with questions or concerns. 02/15/2024 Other Provided case management services to address social determinants of health needs and reduce barriers to health care services. 03/13/2024 Other Client agrees to take medication as prescribed. Discussed medication side effects, adverse effects, risks, benefits, as well as interactions. Encouraged non-use of opioids and other illicit substances. Has naloxone. Understand that discontinuing buprenorphine increases the risk of overdose upon return to illicit opioid use. Know that that use of alcohol or benzodiazepines with buprenorphine increases the risk of overdose and . Education provided about safe storage of medications. Encourage participation in recovery groups/counseling services. Patient understands that all treating providers/physicia ns should be informed of buprenorphine use as part of a Medication Assisted Recovery program. Contact office with questions or concerns. 03/13/2024 Other Provided case management services to address social determinants of health needs and reduce barriers to health care services. 05/18/2024 Other Discussed medication side effects, adverse effects, risks, benefits, as well as interactions. Encouraged non-use of opioids. Has naloxone. Recommended participation in recovery groups/counseling services. Agrees to contact office with questions or concerns. 06/19/2024 Other Discussed medication side effects, adverse effects, risks, benefits, as well as interactions. Encouraged non-use of opioids. Has naloxone. Recommended participation in recovery groups/counseling services. Agrees to contact office with questions or concerns. 07/26/2024 Other Patient agrees to take medication as prescribed. Discussed medication side effects, adverse effects, risks, benefits, as well as interactions. Encouraged non-use of opioids. Encouraged participation in recovery groups. Patient may contact office with questions or concerns. 08/23/2024 Other Potential side effects of buprenorphine discussed, as well as taking buprenorphine as prescribed. Dangers of using other controlled substances (prescribed or illegal/including benzodiazepines) with buprenorphine discussed. Patient understands taking other narcotics with buprenorphine could lead to respiratory distress and even . Patient understands that ALL treating providers/physicia ns should be informed of buprenorphine use as part of a Medication Assisted Treatment program 09/24/2024 Other Discussed positive fentanyl from 07/2024. Discussed risks of methamphetamine and encouraged non-use. Discussed MAR program expectations. Patient agrees to take medication as prescribed. Discussed medication side effects, adverse effects, risks, benefits, as well as interactions. Encouraged non-use of opioids and other illicit substances. Has naloxone. Discontinuing buprenorphine increases the risk of overdose upon return to illicit opioid use. Use of alcohol or benzodiazepines with buprenorphine increases the risk of overdose and . Education provided about safe storage of medications. Encouraged participation in recovery groups/counseling services. Contact office with questions or concerns. 10/23/2024 Other Discussed risks of methamphetamine use including cardiovascular, mental health, and infection risks. Encouraged non-use. Patient agrees to take medication as prescribed. Discussed medication side effects, adverse effects, risks, benefits, as well as interactions. Encouraged non-use of opioids and other illicit substances. Has naloxone. Discontinuing buprenorphine increases the risk of overdose upon return to illicit opioid use. Use of alcohol or benzodiazepines with buprenorphine increases the risk of overdose and . Education provided about safe storage of medications. Encouraged participation in recovery groups/counseling services. Contact office with questions or concerns. Patient may self-administe r their own medications or may self-administe r their own oral medications per [place] Protocol. Plan Of Treatment No Information Insurance Providers Payer Name Payer Address Payer Phone Subscriber Number Group Number Insured Name Patient Relationship to Insured Coverage Start Date Coverage End Date [facility] [address] [place] [phone] [id number] Jens Mobley Self - patient is the insured 9 4 [employer] [address] [place] [address] [id number] Jens Mobley Self - patient is the insured 2 4 [employer] [address] [place] [address] [id number] Jens Mobley Self - patient is the insured 2 4 Medications Administered Medication Instructions Date of Administration Dosage Notes Brixadi (Weekly) 11/18/2023 16 mg Brixadi (Weekly) 11/25/2023 16 mg Patient tolerated well with no discomfort verbalized or noted- Breanna Bryant RN Brixadi (Weekly) 12/02/2023 16 mg Brixadi (Weekly) 12/14/2023 24 mg Sublocade 02/05/2022 300 mg Sublocade 03/09/2022 1.5 mL Sublocade 04/08/2022 300 mg Sublocade 05/06/2022 300 mg Sublocade 06/03/2022 300 mg SN: [id number]. Patient tolerated well. Sublocade 07/01/2022 300 mg SN: [id number]. Patient tolerated well. Sublocade 07/29/2022 300 mg SN: [id number]. Patient tolerated well. Sublocade 08/25/2022 300 mg Pt. tolerated well. No questions/concerns at this time. Sublocade 09/22/2022 300 mg Pt will well. L eft lower Abd Sublocade 10/19/2022 300 mg Sublocade 11/16/2022 300 mg Cristian Reynolds otgalina 11/16/2022 11:08:53 AM > Pt tolerated injection to the LLQ well. Sublocade 12/15/2022 300 mg Pt tolerated i njection well. Pt voiced no questions or concerns. Sublocade 01/12/2023 300 mg Lili Alonzo 01/12/2023 10:32:11 AM >Injection given in LLQ per patient request. Patient tolerated well. Sublocade 02/11/2023 300 mg Pt tolerated i njection well. Pt voiced no questions or concerns. Sublocade 03/10/2023 300 mg Rodolfo, Cristian othea 03/10/2023 10:43:56 AM > Patient tolerated injection to the LLQ of the ABD well, minimal distress observed and reported. Sublocade 04/08/2023 300 mg Sublocade 05/09/2023 300 mg Pt. tolerated well. No questions/concerns at this time. Sublocade 10/28/2023 300 mg Rodolfo, Cristian othea 10/28/2023 09:28:43 AM [employer] > Patient tolerated injection to the LLQ of the ABD well, minimal discomfort was observed and reported. Medical (General) History Medical History History ICD Code Opioid use disorder Surgical History Surgery Date(Month/Year) C6& c7 fusion x2 rotator cuff tear repair left Hospitalization History Reason Date(Month/Year) rotator cuff tear repair left side c6&c7 fusion x2
--- NOTE | 2024-12-14 21:45 | ED.UPPEXIN ---
HPI - Extremity Injury (Upper) General Chief Complaint: Extremity Injury, Upper Stated Complaint: upper extremity injury Time Seen by Provider: 12/14/24 21:43 Source: patient Mode of arrival: ambulatory Limitations: no limitations History of Present Illness HPI narrative: Patient is a 44-year-old male with a right shoulder pain for the past month after injury while coming down the ladder. He has not had relief of the pain over the past month. He is having difficulty lifting and moving objects for work. He is a [employer]oks. Also he has a right neck abscess formation after getting bit by a spider 4 days ago. He saw the spider and killed it. MD complaint: injury to: right and shoulder Onset (ago): month(s) ( One) Other Extremity Injury: Right: shoulder Other injuries: none Place: work and outdoors Severity: moderate Severity scale (1-10): 5 Relieving factors: immobilization Exacerbating factors: movement of extremity Context: injury and other ( patient was climbing a ladder and fell 1 month ago with continuous and residual right shoulder pain) Associated symptoms: denies other symptoms Treatments prior to arrival: other ( none) Related Data Home Medications ?Medication ?Instructions ?Recorded ?Confirmed ?Last Taken ?Type acetaminophen 325 mg capsule 325 mg PO Q6H PRN 01/12/23 01/03/24 Unknown History loratadine 10 mg tablet (Allergy 10 mg PO DAILY 01/03/24 Unknown History Relief (loratadine)) Allergies Allergy/AdvReac Type Severity Reaction Status Date / Time shellfish derived Allergy Severe Anaphylaxis Verified 01/03/24 08:57 clarithromycin Allergy Unknown Hives Verified 01/03/24 08:57 codeine Allergy Unknown Hives Verified 01/03/24 08:57 morphine Allergy Unknown Unknown Verified 01/03/24 08:57 propoxyphene Allergy Unknown Unknown Verified 01/03/24 08:57 Review of Systems Review of Systems: All systems reviewed & are unremarkable except as noted in HPI and below Constitutional: Constitutional: Reports no additional constitutional complaints Eyes: Eyes: Reports no additional eye complaints ENT: Reports system reviewed and no additional complaints, except as documented Cardiovascular: Cardiovascular: Reports no additional cardiovascular complaints Respiratory: Respiratory: Reports no additional respiratory complaints Gastrointestinal: Gastrointestinal: Reports no additional gastrointestinal complaints Genitourinary: Genitourinary: Reports no additional male genitourinary complaints Musculoskeletal: Musculoskeletal: Reports no additional musculoskeletal complaints Integumentary/Breasts: Skin/Breast: Reports system reviewed and no additional complaints, except as docu Neurologic: Reports system reviewed and no additional complaints, except as documented Psychiatric: Psychiatric: Reports no additional psychiatric complaints Endocrine: Endocrine: Reports no additional endocrine complaints Hematologic/Lymphatic: Hematologic/Lymphatic: Reports no additional hematologic/lymphatic complaints Allergic/Immunologic: Allergic/Immunologic: Reports no additional allergic/immunologic complaints PMFSH Past Medical History Medical History Fractures Right patella Musculoskeletal disorder Right carpal tunnel release History of hypertension Surgical History Surgical History H/O Spinal surgery C6 and C7 fusion History of orthopedic surgery Left shoulder History of cholecystectomy History of appendectomy Family History Family History Son Asthma Social History Social History Smoking packs per day: 0.50 Smoking cigarettes per day: 10.0 Years smoked: 29 Smoking pack-years: 14.50 Smoking status: Current every day smoker Tobacco type: cigarettes and e-cigarettes/vaping Additional smoking assessment comments: Currently smokes 0.5ppd Alcohol use details: None currently Substance use: former Living arrangements: with family Gender identity (if verbalized by the patient): Male Exam Const: General: healthy appearing Nutritional Appearance: well nourished Orientation/consciousness: patient oriented x3 Limitations: no limitations HENMT: Head: normal to inspection Ears: external ears normal Face/Nose/Sinus: Normal external nose present Eyes: Conjunctivae: conjunctivae normal Pupils: Equal, round and reactive pupils present EOM: EOMs intact bilaterally Neck: Neck: normal visual inspection Chest: Chest palpation & inspection: normal inspection of the chest Resp: Effort & Inspection: normal respiratory effort and not labored Auscultation: clear to auscultation bilaterally and no crackles Cardio: Rate: regular rate Rhythm: regular rhythm Heart sounds: no murmurs GI: Inspection: non-distended GI Palp: Yes Soft to palpation, No Tenderness to palpation present (GI) and No Guarding due to palpation present (GI) Auscultation: normal bowel sounds : General: Yes bladder normal to palpation Back/Spine/Pelvis: Back: no CVA tenderness Skin: General skin exam: normal color Rashes: no rashes Wounds: wounds noted Other: right neck has a moderate-sized abscess with opening and pus drainage from a spider bite 4 days ago Neuro: General: patient oriented x3 Cranial nerves: Yes Nystagmus not present Speech: normal speech Gait exam (Neuro): Normal gait present Extrem: General: normal to inspection Other: tender right shoulder to range of motion and palpation and examination correlates with rotator cuff tear Psych: Mental Status: mental status grossly normal Affect: normal affect Attitude: cooperative Course Vital Signs Vital signs: Vital Signs Temperature 36.0 C L 12/14/24 21:44 Pulse Rate 73 12/14/24 21:44 Respiratory Rate 18 12/14/24 21:44 Blood Pressure 112/85 12/14/24 21:44 Pulse Oximetry 97 12/14/24 21:44 Oxygen Delivery Room Air 12/14/24 21:44 Temperature 36.0 C L 12/14/24 21:44 Pulse Rate 73 12/14/24 21:44 Respiratory Rate 18 12/14/24 21:44 Blood Pressure 112/85 12/14/24 21:44 Pulse Oximetry 97 12/14/24 21:44 Oxygen Delivery Room Air 12/14/24 21:44 MDM - Extremity Injury (Upper) MDM Narrative Medical decision making narrative: patient is a 44-year-old male with a right shoulder injury a month ago and continued pains at this time. Patient is on Suboxone. He also has a right neck abscess after a spider bite 4 days ago. We will do pain management at this time for the shoulder and he needs an outpatient MRI with the primary doctor. X-ray done in the ER tonight was negative. For the spider bite, we will start with antibiotics and his tetanus shot is up-to-date in the past 5 years. We will start clindamycin for antibiotics at this time and see him back in 2 days to do incision and drainage of the area. At this time it is too tender and currently draining. Discharge Plan Discharge Clinical Impression: Rotator cuff tear arthropathy of right shoulder Abscess of skin Qualifiers: Site of cutaneous abscess: neck Qualified Code(s): L02.11 - Cutaneous abscess of neck Patient Disposition: Home Condition: Stable Instructions: Antibiotic Form, Rotator Cuff Injury (ED), Abscess Incision and Drainage (DC) Additional Instructions: please follow-up with the primary doctor in the next week. You will need an MRI of that right shoulder to determine abnormality of the area. Further, come back to the emergency room on Tuesday so I can do incision and drainage of the area on the right neck. We will do antibiotics until that time. Patient Language: Bengali Prescriptions: New cyclobenzaprine 10 mg tablet 10 mg PO TID PRN (Reason: pain) Qty: 30 0RF methylprednisolone [Medrol (Eliazar)] 4 mg tablets,dose pack See Rx Instructions .ROUTE .COMPLEX Qty: 21 0RF Rx Instructions: orally per package directions clindamycin HCl [Cleocin HCl] 300 mg capsule 300 mg PO TID 10 Days Qty: 30 0RF No Action acetaminophen 325 mg capsule 325 mg PO Q6H PRN loratadine [Allergy Relief (loratadine)] 10 mg tablet 10 mg PO DAILY montelukast [Singulair] 10 mg tablet 10 mg PO QHS 30 Days Qty: 30 5RF (DME) Silviano Aerosol [place] Enhancer Spacer See Rx Instructions .Route Qty: 1 0RF Rx Instructions: As directed naproxen 250 mg tablet 250 mg PO BID PRN (Reason: pain) Qty: 20 0RF (DME) Space Chamber Spacer See Rx Instructions .ROUTE .COMPLEX Qty: 1 1RF Dose Instruction: USE DIRECTED PER PHYSICIAN. Rx Instructions: USE DIRECTED PER PHYSICIAN. albuterol sulfate 90 mcg/actuation HFA aerosol inhaler See Rx Instructions .ROUTE .COMPLEX Qty: 9 5RF Dose Instruction: INHALE 1 TO 2 PUFFS BY MOUTH EVERY 4 TO 6 HOURS NEEDED FOR SHORTNESS OF BREATH OR WHEEZING Rx Instructions: INHALE 1 TO 2 PUFFS BY MOUTH EVERY 4 TO 6 HOURS NEEDED FOR SHORTNESS OF BREATH OR WHEEZING budesonide-formoterol [Symbicort] 160-4.5 mcg/actuation HFA aerosol inhaler See Rx Instructions .ROUTE .COMPLEX Qty: 11 5RF Dose Instruction: INHALE 2 PUFFS BY MOUTH EVERY 12 HOURS. RINSE AND SPIT. USE WITH SPACER Rx Instructions: INHALE 2 PUFFS BY MOUTH EVERY 12 HOURS. RINSE AND SPIT. USE WITH SPACER Follow-up/Referrals: Glynn,Christian Rich MD [Primary Care Provider] - Time of Disposition: 22:40
[2024-12-14] MEDS: CYCLOBENZAPRINE HCL 10 MG TABLET PO (22:37)
[2024-12-14] MEDS: KETOROLAC (*BKC) 60 MG/2 ML VIAL IM (22:37)
[2024-12-14] MEDS: CLINDAMYCIN HCL 150 MG CAP 300 MG PO (22:37)
[2024-12-14 22:55] VITALS: BP 110/62; PULSE 71; RESP 18; TEMP 36.6; O2SAT 99
== END 2024-12-14 22:55 | disposition home or self-care (01) ==
PROVIDERS: Emergency Provider Emergency Medicine; PCP Family Medicine
DX: M12.811 Other specific arthropathies, not elsewhere classified, right shoulder (principal); L02.11 Cutaneous abscess of neck; I10 Essential (primary) hypertension; F17.210 Nicotine dependence, cigarettes, uncomplicated; W57.XXXA Bitten or stung by nonvenomous insect and other nonvenomous arthropods, initial encounter
CPT/HCPCS: 73030; 96372; 99283; A9270; J1885

== ENCOUNTER 2025-02-20 05:24 | Emergency (ER) | payer OTHER, SELFPAY ==
--- NOTE | ~2025-02-20 | XR_ITS ---
AP and lateral views of the right tibia/fibula Clinical History: Forearm body, dog bite Findings: No acute fracture or dislocation is seen. Osseous alignment is anatomic. Joint spaces are p reserved without significant erosive or degenerative change. Soft tissues are unremarkable. Impression: Unremarkable right tib-fib radiographs. No radiopaque foreign body. Reviewed, dictated and finalized at location . Impression: Unremarkable right tib-fib radiographs. No radiopaque foreign body.
[2025-02-20 05:23] VITALS: BP 153/93; PULSE 72; RESP 16; TEMP 36.4; O2SAT 98
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
--- OUTSIDE RECORDS SUMMARY | 2025-02-20 05:39 | XMS_ITS | Patient Health Record ---
Author Organization [facility] Address [address] [place] [address] Care Team Providers Care Sieve Repairer Name Role Phone SparrLeonie Primary Care Provider [phone] Magdi Milian Unavailable [phone] Trevor Carlson Unavailable [phone] Dee Conner Unavailable [phone] Breanna Helm Unavailable Anahy Mays Unavailable [phone] Allergies Allergen (clinical drug ingredient) Drug/Non Drug Allergy documented on EMR Reaction Allergy Type Onset Date Status codeine Codeine Unknown Drug Allergy Active Shellfish (FN) Shellfish-derived Products Unknown Drug Allergy Active Results Component Value Reference Range Notes 12 Panel Urine Drug Screen Reviewed date:03/13/2024 [...] neg OXY neg PCP neg BUP POS 14 Panel Urine Drug Screen Reviewed date:01/29/2025 03:22:27 PM Interpretation: Performing Lab: Notes/Report: THC neg KELVIN neg MOP (OPI) neg AMP POS MET POS BAR neg BZO neg MDMA POS MTD neg OXY neg PCP neg BUP POS TCA neg FTY POS 12 Panel Urine Drug Screen Reviewed date:05/18/2024 11:33:50 AM Interpretation: Performing Lab: Notes/Report: THC neg KELVIN neg MOP (OPI) neg AMP neg MET neg BAR neg BZO neg MDMA neg MTD neg OXY neg PCP neg BUP NEG Buprenorphine and Metabolite (Urine test) Reviewed date:02/04/2025 09:52:21 AM Interpretation: Performing Lab:[facility], [address], [place], Phone - [phone], Director - PhDAbudu Notes/Report: Clinical Information:[id number] Buprenorphine Positive Confirmation p erformed by Mass Spectrometry Buprenorphine Positive Buprenorphine Conf, MS, UR 54 Cutoff=10 ng/m L Norbuprenorphine Positive Norbuprenorphine Conf, MS, UR 99 Cutoff=10 n g/mL 12 Panel Urine Drug Screen Reviewed date:08/23/2024 11:22:28 AM Interpretation: Performing Lab: Notes/Report: THC neg KELVIN neg MOP (OPI) neg AMP POS MET POS BAR neg BZO neg MDMA neg MTD neg OXY neg PCP neg BUP POS 12 Panel Urine Drug Screen Reviewed date:12/21/2024 11:30:15 AM Interpretation: Performing Lab: Notes/Report: THC neg KELVIN neg MOP (OPI) neg AMP POS MET POS BAR neg BZO neg MDMA neg MTD neg OXY neg PCP neg BUP POS Fentanyl Confirmation, Ur Reviewed date:08/10/2024 03:33:57 PM Interpretation: Performing Lab:[facility], [address], [place], Phone - [phone], Director - PhDAbudu Notes/Report: Clinical Information:[id number] -Techinical component - Data analysis performed at [facility], [address] [place] [address]. [phone] Data Governance Consultant Dhiraj Prieto MD. FENTANYL / ANALOGUES +POSITIVE+ Fentanyl 13 Norfentanyl 31 Testing Threshold: fentanyl, 1.0 ng/mL; others, 5 ng/mL This test was developed and its performance characteristics determined by [facility]. It has not been cleared or approved by the Food and Drug Administration. 12 Panel Urine Drug Screen Reviewed date:07/26/2024 02:11:04 PM Interpretation: Performing Lab: Notes/Report: THC neg KELVIN neg MOP (OPI) neg AMP POS MET POS BAR neg BZO neg MDMA neg MTD neg OXY neg PCP neg BUP POS Buprenorphine and Metabolite (Urine test) Reviewed date:08/01/2024 11:34:32 AM Interpretation: Performing Lab:[facility], [address], [facility], Phone - [phone], Director - PhDAbudu Notes/Report: Clinical Information:[id number] -Techinical component - Data analysis performed at [address] [address]. [phone] Data Governance Consultant Dhiraj Prieto MD. Buprenorphine Positive Confirmation p erformed by Mass Spectrometry Buprenorphine Positive Buprenorphine Conf, MS, UR 97 Cutoff=10 ng/m L Norbuprenorphine Positive Norbuprenorphine Conf, MS, UR 246 Cutoff=10 n g/mL Reason For Referral No Information Medications Medication SIG (Take, Route, Frequency, Duration) Notes Start Date End Date Status Fluticasone Propionate 50 MCG/ACT 2 SPRAYS Nasally at night EACH NOSTRIL 12/14/2023 Active Buprenorphine HCl-Naloxone HCl 8-2 MG 1 film under the tongue and allow to dissolve Sublingual four times a day; Duration: 15 days 01/29/2025 Active Vitamin D (Ergocalciferol) 1.25 MG (32197 UT) TAKE 1 CAPSULE BY MOUTH EVERY MONTH; Duration: 30 Active OXcarbazepine 150 mg TAKE 1 TABLET BY MOUTH TWICE A DAY; Duration: 30 Not-Taking Acetaminophen Extra Strength 500 mg TAKE 2 TABLETS BY MOUTH EVERY SIX HOURS NEEDED FOR PAIN (MAX OF 6/DAY); Duration: 15 Active Gabapentin 300 mg TAKE 1 CAPSULE BY MOUTH DAILY; Duration: 30 Not-Taking Losartan Potassium 25 mg TAKE 1 TABLET B Y MOUTH DAILY; Duration: 30 Active hydroCHLOROthiazide 25 mg TAKE 1 TABLET BY MOUTH EVERY MORNING; Duration: 30 Active Loratadine 10 MG 1 tablet Orally Once a day; Duration: 30 day(s) Active Trulicity 4.5 MG/0.5ML INJECT 4.5MG SUBCUTANEOUSLY EVERY WEEK; Duration: 28 Active Ipratropium [place] 0.03 % 2 sprays in e ach nostril Nasally Twice a day 01/05/2023 Active rOPINIRole HCl 1 mg TAKE 1 TO 2 TABLETS BY MOUTH 1-3 HOURS BEFORE BEDTIME; Duration: 30 Active tiZANidine HCl 4 MG 1 tablet Orally three times a day; Duration: 15 days As needed Active hydrOXYzine Pamoate 50 MG 1 capsule Orally Once a day; Duration: 30 days As needed anxiety Active Ventolin HFA 108 (90 Base) MCG/ACT INHALE 2 PUFFS EVERY FOUR HOURS NEEDED FOR SHORTNESS OF BREATH; Duration: 16 Active Omeprazole 20 mg TAKE 1 CAPSULE BY MOUTH 30 MINUTES BEFORE MORNING MEAL; Duration: 30 Active Narcan 4 MG/0.1ML as directed Nasally Active Naproxen 500 MG 1 tablet with food o r milk as needed Orally every 12 hrs; Duration: 30 days Active Daily-Vasile - TAKE 1 TABLET BY MOUTH DAILY; Duration: 30 Active Social History Tobacco Use: Social History [...] GED 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 Stress is when someone feels tense, nervous, anxious, or can\t sleep at night because their mind is troubled A little bit In the past year have you sp ent more than 2 nights in a row in a long-term, senior care, assisted center, or juvenile correctional facility? No Are [...] cigs/day) Section Notes: Patient reports that he has decreased smoking [...] pack of cigarettes. Patient reports that he smok es 1 [...] Problem Status W/U Status Risk Notes Problem Mental disorder caused by drug (578521265) Opioid use, unspecified with unspecified opioid-induced disorder (F11.99) Active confirmed Problem Bipolar disorder (26205762) Bipolar disorder, unspecified (F31.9) 022 Active confirmed Problem Chronic pain (27635215) Other chronic pain (G89.29) Active confirmed Problem Pain of right knee region (finding) (794722539872589) Pain in right knee (M25.561) Active confirmed Problem Sciatica (24017999) Lumbago with sciatica, right side (M54.41) Active confirmed Problem Sciatica (74425583) Lumbago with sciatica, left side (M54.42) Active confirmed Problem Hypertension (98519689) Hypertension (I10) 022 Active confirmed Problem Vitamin D deficiency (43536068) Vitamin D deficiency (E55.9) Active confirmed Problem Generalized anxiety disorder (96649628) SHANE (generalized anxiety disorder) (F41.1) Active confirmed Problem Restless legs syndrome (89363380) Restless leg syndrome (G25.81) Active confirmed Problem Overweight (320920659) Over weight (E66.3) Active confirmed Problem Chronic fatigue syndrome (56045500) Chronic fatigue (R53.82) Active confirmed Problem History of methamphetamine use (20539414330722491) Methamphetamine use (F15.10) Active confirmed Problem Obesity (012850602) Obesity (BMI 30-39.9) (E66.9) Active confirmed Problem Gastroesophageal reflux disease without esophagitis (068364669) Gastroesophageal reflux disease without esophagitis (K21.9) Active confirmed Problem Tobacco use (681655712) Tobacco use disorder (F17.200) Active confirmed Problem Impaired glucose tolerance (7398632) Impaired glucose tolerance (R73.02) 023 Active confirmed Problem Obesity (072412919) Obesity due to excess calories without serious comorbidity, unspecified classification (E66.09) Active confirmed Problem Obesity (097672467) Obesity, unspecified classification, unspecified obesity type, unspecified whether serious comorbidity present (E66.9) Active confirmed Problem Allergic rhinitis (36839325) Allergic rhinitis, unspecified seasonality, unspecified trigger (J30.9) Active confirmed Problem BMI 30+ - obesity (983043254) BMI 32.0-32.9,adult (Z68.32) Active confirmed Problem Opioid use disorder (9226219145) Opioid use disorder (F11.99) Active confirmed Problem Body mass index 30+ - obesity (941967204) Body mass index (BMI) of 31.0-31.9 in adult (Z68.31) Active confirmed Problem Lesion of ulnar nerve (727817045) 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) Active confirmed Problem Body mass index 30.00 to 34.99 (572650648065886) Body mass index [BMI] 31.0-31.9, adult (Z68.31) Active confirmed Problem Body mass index 30+ - obesity (741719865) Body mass index [BMI] 30.0-30.9, adult (Z68.30) Active confirmed Vital Signs Heart Rate 86 /min 01/29/2025 Temperature 97.4 degrees Fahrenheit 08/23/2024 Respiratory Rate 18 /min 01/29/2025 Oximetry 97 % 01/29/2025 Blood pressure diastolic 70 mm Hg 01/29/2025 Height 73 in 01/29/2025 Blood pressure systolic 124 mm Hg 01/29/2025 Weight 196 lb 6 oz lbs 01/29/2025 BMI 25.91 kg/m2 01/29/2025 Encounters Encounter Location Date Provider Diagnosis [address] [place] [address] 03/13/2024 Anahy Mays Nicotine dependence, unspecified, uncomplicated F17.200 ; Opioid use disorder F11.99 ; Overweight (BMI 25.0-29.9) E66.3 and Nutritional counseling Z71.[address] [place] [address] 03/13/2024 Dee Conner [address] [place] [address] 05/18/2024 Kimiia Rukhsana Opioid use disorder F11.99 ; Overweight (BMI 25.0-29.9) E66.3 and Tobacco use disorder F17.200 [facility] [address] [place] [address] 06/19/2024 Jenia Heavebhavesh Opioid use disorder F11.99 [facility] [address], [place] [address] 07/26/2024 Breanna Tanwangco Opioid use disorder F11.99 and Tobacco use disorder F17.[address] [address] 08/23/2024 Trevor Carlson Opioid use disorder F11.99 ; Allergic rhinitis, unspecified seasonality, unspecified trigger J30.9 ; Overweight (BMI 25.0-29.9) E66.3 ; Nutritional counseling Z71.3 and Nicotine dependence, unspecified, uncomplicated F17.[address] [address] 09/24/2024 Anahy Mays Opioid use disorder F11.[address] [address] 10/23/2024 Anahy Hardylufithomas Opioid use disorder F11.[address] [address] 12/21/2024 Leonie Brown Opioid use disorder F11.99 and Methamphetamine use F15.[address] [address] 01/29/2025 Anahy Mays Opioid use disorder F11.99 ; Over weight E66.3 and Methamphetamine use F15.[address] [address] 02/19/2025 Anahy Mays [address] [address] 04/11/2024 Anahy Mays [address] [address] 04/18/2024 Anahy Mays [address] [address] 07/26/2024 Breanna Tanwangco Opioid use disorder F11.[address] [address] 04/11/2024 Anahy Mays [address] [address] 04/16/2024 Trevor Carlson [address] [address] 11/21/2024 Anahy Mays Opioid use disorder F11.99 Assessments Encounter Date Diagnosis (ICD Code) Assessment Notes Treatment Notes Treatment Clinical Notes Section Notes 03/13/2024 Nicotine dependence, unspecified, uncomplicated (ICD-10 - F17.200) 03/13/2024 Opioid use disorder (ICD-10 - F11.99) 05/18/2024 Overweight (BMI 25.0-29.9) (ICD-10 - E66.3) 05/18/2024 Opioid use disorder (ICD-10 - F11.99) 06/19/2024 Opioid use disorder (ICD-10 - F11.99) 07/26/2024 Tobacco use disorder (ICD-10 - F17.200) 07/26/2024 Opioid use disorder (ICD-10 - F11.99) 07/26/2024 Opioid use disorder (ICD-10 - F11.99) 08/23/2024 Allergic rhinitis, unspecified seasonality, unspecified trigger (ICD-10 - J30.9) 08/23/2024 Opioid use disorder (ICD-10 - F11.99) Zubsolv not covered, changed to suboxone. 09/24/2024 Opioid use disorder (ICD-10 - F11.99) 10/23/2024 Opioid use disorder (ICD-10 - F11.99) 11/21/2024 Opioid use disorder (ICD-10 - F11.99) 12/21/2024 Methamphetamine use (ICD-10 - F15.10) education and support provided 12/21/2024 Opioid use disorder (ICD-10 - F11.99) May self-administer or be administered own oral medication per [facility] Protocols. Provided informed consent with understanding of side effects, risks and benefits as well as alternative treatments as previously discussed and with the above recommended medications ang other aspects of the treatment program. Agrees to return sooner if symptoms worsen or suicidal or homicidal ideations occur. support and education provided concerning illness and treatment plan, risks and benefits, pt verbalized understanding of the same and agreeable via secure Zoom connection - presents for MAT walk in clinic. Denies concerns, cravings, Has been using meth x6 MO and is working on stopping, stopping meth has been rough, Suboxone and Tizanidine have been helpful with stopping meth - Feels Suboxone at current dose has been working well, prefers to continue with current dose - continue Suboxone for OUD, evaluate at follow up in 4 weeks - [place] PDMP- no concerns - UDS-++AMP, MET, BUP- reviewed with pt 01/29/2025 Over weight (ICD-10 - E66.3) 01/29/2025 Opioid use disorder (ICD-10 - F11.99) 01/29/2025 Methamphetamine use (ICD-10 - F15.10) Discussed risks of methamphetamine use including cardiovascular complications, mental health disturbances, and infection risk. Discussed harm reduction strategies. Encouraged participation in recovery groups as well as counseling. *Declines referrals 08/23/2024 Overweight (BMI 25.0-29.9) (ICD-10 - E66.3) 05/18/2024 Tobacco use disorder (ICD-10 - F17.200) 03/13/2024 Overweight (BMI 25.0-29.9) (ICD-10 - E66.3) 03/13/2024 Nutritional counseling (ICD-10 - Z71.3) 08/23/2024 Nutritional counseling (ICD-10 - Z71.3) 08/23/2024 Nicotine dependence, unspecified, uncomplicated (ICD-10 - F17.200) 03/13/2024 Other Client agrees to take medication [...] self-administe r their own oral medications per [facility] Protocol. 01/29/2025 Other Patient agrees to take medication as [...] self-administe r their own oral medications per [facility] Protocol. Plan Of Treatment No Information Insurance Providers Payer Name Payer Address Payer Phone Subscriber Number Group Number Insured Name Patient Relationship to Insured Coverage Start Date Coverage End Date [employer] [address] [place] [phone] [id number] Jens Mobley Self - patient is the insured 9 4 [employer] [address] [place] [phone] [id number] Jens Mobley Self - patient is the insured 2 4 [employer] [address] [place] [address] [id number] Jens Mobley Self - patient is the [...] 300 mg Sublocade 06/03/2022 300 mg SN: [id number]. Patient tolerated well. Sublocade 07/01/2022 300 mg SN: [id number]. Patient tolerated well. Sublocade 07/29/2022 300 mg SN: [id number]. Patient tolerated well. Sublocade 08/25/2022 300 mg Pt. tolerated well. No questions/concerns at this time. Sublocade 09/22/2022 300 mg Pt will well. L eft lower Abd Sublocade 10/19/2022 300 mg Sublocade 11/16/2022 300 mg Rodolfo, Cristian othea 11/16/2022 11:08:53 AM > Pt tolerated injection [...] mg Rodolfo, Cristian othea 10/28/2023 09:28:43 AM LAST WAXER > Patient tolerated injection to the LLQ of the ABD well, minimal discomfort was observed and reported. Medical (General) History Medical History History ICD Code Opioid use disorder Surgical History Surgery Date(Month/Year) C6& c7 fusion x2 rotator cuff tear repair left Hospitalization History Reason Date(Month/Year) c6&c7 fusion x2 rotator cuff tear repair left side
--- NOTE | 2025-02-20 06:18 | PC.NURSE ---
patient refused collection of second set of blood cultures and urine collection. JIM Bill and JERRY rodrigues.
[2025-02-20] MEDS: ACETAMINOPHEN 500 MG TABLET 1000 MG PO (06:19)
[2025-02-20] MEDS: TETANUS,DIPHTHERIA,AC PERTUSSIS ADULT (0.5 ML) BOOSTRIX IM (06:19)
[2025-02-20 06:25] LABS: Hematocrit 37.3 % (42.0-52.0); Hemoglobin 12.3 g/dL (14.0-18.0); Immature Granulocyte Percent A 0.2 % (0-0.5); Lymphocytes Absolute Auto 2.23 K/mm3 (0.9-3.2); Mean Corpuscular HGB Conc 33.0 g/dl (32-36); Mean Corpuscular Hemoglobin 26.9 pg (26-34); Mean Corpuscular Volume 81.6 fl (80-100); Nucleated Red Blood Cells Absolute Auto 0.000 K/mm3 (0.0-0.012); Nucleated Red Blood Cells Perc 0.0 % (0.0-0.2); Platelet Count Result 267 k/mm3 (150-375); Red Blood Count 4.57 M/mm3 (4.6-6.20); White Blood Count 8.1 K/mm3 (4.5-10.0)
[2025-02-20 06:47] LABS: Anion Gap 8 mmol/L (4-12); Blood Urea Nitrogen 10 mg/dL (9-20); Calcium 9.0 mg/dL (8.4-10.2); Carbon Dioxide 26 mmol/L (22-30); Chloride 103 mmol/L (98-107); Estimated CRCL calculation 124 ml/min; Estimated Glomerular Filt Rate > 60; Glucose 132 mg/dL (65-110); Potassium 2.6 mmol/L (3.4-5.0); Sodium 137 mmol/L (137-145)
[2025-02-20 07:01] LABS: Magnesium 2.1 mg/dL (1.6-2.3)
[2025-02-20] MEDS: POTASSIUM BICARBONATE 25 MEQ TABEF 50 MEQ PO (07:14)
[2025-02-20 07:29] VITALS: BP 138/96; PULSE 64; RESP 12; O2SAT 98
[2025-02-20 07:34] VITALS: BP 138/96; PULSE 64; RESP 12; O2SAT 98
== END 2025-02-20 07:42 | disposition home or self-care (01) ==
PROVIDERS: Emergency Provider Student in an Organized Health Care Education/Training Program; PCP Family Medicine
DX: S81.851A Open bite, right lower leg, initial encounter (principal); D64.9 Anemia, unspecified; E87.6 Hypokalemia; Z23 Encounter for immunization; I10 Essential (primary) hypertension; F17.210 Nicotine dependence, cigarettes, uncomplicated; F17.290 Nicotine dependence, other tobacco product, uncomplicated; Z98.1 Arthrodesis status; Z90.49 Acquired absence of other specified parts of digestive tract; W54.0XXA Bitten by dog, initial encounter
CPT/HCPCS: 36415; 73590; 80048; 82077; 83605; 83735; 85025; 87040; 90471; 90715; 99284; A9270